=== PATIENT | female | born 1985 | race Caucasian/White ===

== ENCOUNTER 2017-06-18 07:14 | Emergency (ER) | payer MEDICARE, OTHER ==
[~2017-06-18] VITALS: Ht 152.4 cm; Wt 49.9 kg
[~2017-06-18 07:14] MED LIST: ABILIFY2 MG PO; AUGMENTIN 500-1 EACH PO; BACTRIM DS1 EA PO; CLARITIN10 M3 PO; KLONOPIN2 MG PO; PAXIL40 MG PO; PROVENTIL HFA6.7 GM INH; TUSSIONEX PENN480 ML PO; Z.0.LISINOPRIL10 MG PO; Z.0.NEXIUM40 MG PO; Z.0.TOPROL XL100 MG PO; [UNRECOGNIZED DRUG - CODE] PO; [UNRECOGNIZED DRUG - OTHER] PO; [UNRECOGNIZED DRUG - OTHER] PO
[2017-06-18] MEDS ORDERED: HYDROMORPHONE 1MG/1ML INJ IV STA (08:22)
[2017-06-18] MEDS ORDERED: ONDANSETRON HCL INJ 2 MG/ML VIAL IV STA (08:22)
[2017-06-18 08:28] LABS: BILIRUBIN,URINE NEGATIVE (NEGATIVE); KETONES,URINE NEGATIVE (NEGATIVE); LEUKOCYTE ESTERASE ,URINE NEGATIVE (NEGATIVE); NITRITE,URINE NEGATIVE (NEGATIVE); PROTEIN,URINE DIPSTICK NEGATIVE (NEGATIVE); URINE UROBILINOGEN 0.2 mg/dL (0.2 - 1)
[2017-06-18 08:32] LABS: CLARITY,URINE CLEAR (CLEAR); COLOR,URINE YELLOW (YELLOW)
[2017-06-18 08:44] LABS: BACTERIA,URINE RARE /HPF; EPITHELIAL CELLS,URINE RARE /LPF; RBC,URINE 0-5 /HPF (0-5); WBC,URINE (MAN) 0-5 /HPF (0-5)
[2017-06-18] MEDS ORDERED: PROMETHAZINE 25MG/ NS 50ML (IV) IV ONE (09:00)
[2017-06-18] MEDS ORDERED: HYDROMORPHONE 2MG/ML INJ IM ONE (09:00)
[2017-06-18] MEDS ORDERED: PROMETHAZINE HCL (IM) 25 MG/ML VIAL IM ONE (09:00)
[2017-06-18 09:24] LABS: BASOPHILS # (AUTO) 0.1 (0.0-0.1); BASOPHILS % 0.8 % (0.0-1.0); EOSINOPHILS # (AUTO) 0.1 (0.0-0.4); EOSINOPHILS % 1.4 % (0.0-6.0); HEMATOCRIT 35.4 % (34.2-44.1); HEMOGLOBIN 11.9 g/dL (12.0-16.0); LYMPHOCYTES # (AUTO) 2.6 (1.0-3.2); MEAN CORPUSCULAR HEMOGLOBIN 26.6 pg (28-32); MEAN CORPUSCULAR HGB CONC 33.6 g/dL (31-35); MEAN CORPUSCULAR VOLUME 79.2 fL (81-99); MONOCYTES # (AUTO) 0.7 (0.2-0.8); MONOCYTES % 10.3 % (4.4-11.3); NEUTROPHILS # (AUTO) 3.1 (2.1-6.9); NEUTROPHILS % 47.2 % (38.7-80.0); PLATELET COUNT 355 x10e3/uL (140-360); RED BLOOD COUNT 4.47 x10e6/uL (3.6-5.1); RED CELL DISTRIBUTION WIDTH 13.6 % (11.7-14.4)
[2017-06-18 09:47] LABS: ALANINE AMINOTRANSFERASE 6 IU/L (0-55); ALBUMIN 3.4 g/dL (3.5-5.0); ALBUMIN/GLOBULIN RATIO 0.9 (0.8-2.0); ALKALINE PHOSPHATASE 89 IU/L (40-150); ANION GAP 11.4 mmol/L (8-16); BLOOD UREA NITROGEN 20 mg/dL (7-26); BUN/CREATININE RATIO 14 (6-25); CALCIUM 9.5 mg/dL (8.4-10.2); CARBON DIOXIDE 20 mmol/L (22-29); CHLORIDE 107 mmol/L (98-107); CREATININE, SERUM 1.42 mg/dL (0.57-1.11); EST GLOMERULAR FILTRATION RATE 43 ML/MIN (60-); GLUCOSE 114 mg/dL (74-118); POTASSIUM 4.4 mmol/L (3.5-5.1); SODIUM 134 mmol/L (136-145)
[2017-06-18] MEDS ORDERED: DIPHENHYDRAMINE HCL INJ 50 MG/ML VIAL IM ONE (10:00)
--- NOTE | 2017-06-18 11:25 | Diagnostic Imaging Report ---
EXAM: Transabdominal Pelvic Ultrasound INDICATION: \S\ovarian cysts \[id number] \[id number] COMPARISON: None available. TECHNIQUE: Grayscale transverse and sagittal transabdominal images were obtained of the pelvis. CLINICAL HISTORY: 31 year old G0; last menstrual period: 05/07/2017. FINDINGS: Uterus Orientation: Normal Size: 6.9 x 2.8 x 3.5 cm, Normal Mass: None Cervix: Normal Endometrium: Thickness: 0.6 cm, Normal. Appearance: Homogeneous echotexture without focal thickening. Right ovary: Surgically absent. Left ovary: Size: 9.4 x 4.1 x 5.1 cm Mass/Cyst: 2 complex cysts versus a single cyst with septation measuring 9.9 cm (4.4 x 2.7 cm and 5.5 x 4 cm. Peripheral arterial and venous flow detected in left ovary. Adnexa: Transplanted kidney in the left pelvic region. There is a 2.7 x 2.5 x 3 cm midpole renal cyst. Complex cystic structure in the right adnexa measuring 2.4 x 3.4 x 2.9 cm, demonstrating peripheral vascularity. Cul-de-sac: No free fluid IMPRESSION: 1. Enlarged left ovary, containing complex cysts, demonstrating peripheral vascular flow, low likelihood of left ovarian torsion. 2. 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 3. Complex cystic structure in the right adnexa with peripheral vascularity. This could represent markedly hydronephrotic right pelvic transplanted kidney, considering history of bilateral renal transplant. Recommend CT abdomen/pelvis with contrast for further evaluation. Signed by: Dr. Fan Ellison MD on 06/18/2017 11:21 AM
== END 2017-06-18 11:50 | disposition home or self-care (01) ==
LOC: ER 07:14
DX: R10.30 Lower abdominal pain, unspecified (principal); N83.9 Noninflammatory disorder of ovary, fallopian tube and broad ligament, unspecified; I10 Essential (primary) hypertension; N28.9 Disorder of kidney and ureter, unspecified; F43.10 Post-traumatic stress disorder, unspecified; Z94.0 Kidney transplant status
CPT/HCPCS: 36415; 76856; 80053; 81001; 84702; 85025; 87086; 99284; J1170; J1200; J2550

== ENCOUNTER 2018-08-08 22:48 | Emergency (ER) | payer MEDICARE ==
[~2018-08-08] VITALS: Ht 152.4 cm; Wt 54.4 kg
--- OUTSIDE RECORDS SUMMARY | 2018-08-08 22:51 | XMS REPORT | Clinical Summary ---
Author Author CODIE MongoHQSt. 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 Active butalbital-acetaminophen- Take 1 tablet 30 tablet 1 caffeine (FIORICET, by mouth 6 ESGIC) 50-325-40 mg per every 6 (six) tablet hours as needed for Headaches. Active hydrOXYzine (ATARAX) 25 Take 25 mg by 0 MG tablet mouth as 6 needed for Itching . Active terazosin (HYTRIN) 1 MG Take 1 mg by 0 capsule mouth nightly 6 . Active cycloSPORINE modified Take 50 mg by 0 (NEORAL) 50 MG capsule mouth daily. Active PREDNISOLONE ORAL Take 5 mg by 0 mouth daily . Active gabapentin (NEURONTIN) Take 100 mg 0 100 MG capsule by mouth 3 (three) times daily. Active dextroamphetamine-ampheta Take 30 mg by 0 mine (ADDERALL) 10 mg Tab mouth daily . tablet Active lurasidone (LATUDA) 40 mg Take 40 mg by 0 Tab mouth daily. Active clonazePAM (KLONOPIN) 1 Resume as you 10 tablet 0 MG tablet were taking 8 prior to admission. Active PARoxetine (PAXIL) 20 MG Take 2 10 tablet 0 tabletIndications: tablets (40 8 Anxiety with Depression mg total) by mouth every morning. Active QUEtiapine (SEROQUEL) 100 Take 1.5 15 tablet 0 MG tablet tablets (150 8 mg) nightly. You have at home. Active traZODone (DESYREL) 100 Take 1 tablet 10 tablet 0 MG tablet (100 mg 8 total) by mouth nightly. Active valACYclovir (VALTREX) Take 1 tablet 5 tablet 0 500 MG tablet (500 mg 8 total) by mouth daily. 08/23/2018 Active magnesium oxide (MAG-OX) Take 1 tablet 90 tablet 0 400 mg tablet (400 mg 8 total) by mouth 3 (three) times daily. 01/24/2019 Active amLODIPine (NORVASC) 10 Take 1 tablet 30 tablet 11 MG tablet (10 mg total) 8 by mouth daily. Active sirolimus (RAPAMUNE) 0.5 Take 3 90 tablet 11 mg Tab tablet tablets (1.5 8 mg total) by mouth daily. Active pravastatin (PRAVACHOL) Take 40 mg by 0 40 MG tablet mouth daily. Active acetaminophen-codeine Take 1 tablet 0 (TYLENOL #3) 300-30 mg by mouth per tablet every 4 (four) hours as needed for Pain. Active traMADol (ULTRAM) 50 mg Take 50 mg by 0 tablet mouth every 6 (six) hours as needed for Pain. Active diphenhydrAMINE Take 50 mg by 0 (BENADRYL) 50 MG capsule mouth every 6 (six) hours as needed for Itching. 02/24/2019 Active hydrALAZINE (APRESOLINE) Take 1 tablet 60 tablet 0 25 MG tablet (25 mg total) 8 by mouth 2 (two) times daily. 02/24/2019 Active furosemide (LASIX) 20 MG Take 1 tablet 30 tablet 0 tablet (20 mg total) 8 by mouth daily. 08/23/2017 Discontinued PARoxetine (PAXIL) 20 MG Take 40 mg by 0 tabletIndications: mouth every Anxiety with Depression morning . 01/23/2018 Discontinued sirolimus (RAPAMUNE) 2 MG Take 2 mg by 0 tablet mouth daily. 01/23/2018 Discontinued lisinopril Take 5 mg by 0 (PRINIVIL,ZESTRIL) 20 MG mouth daily . tablet 08/23/2017 Discontinued QUEtiapine (SEROQUEL) 100 Take 1.5 0 MG tablet tablets (150 7 mg) nightly. You have at home. 08/23/2017 Discontinued clonazePAM (KLONOPIN) 1 Resume as you 0 MG tablet were taking 7 prior to admission. 01/23/2018 Discontinued polyethylene glycol Use daily per 0 (GLYCOLAX) 17 gram packet package 7 instructions for constipation. Is over the counter. 08/23/2017 Discontinued traZODone (DESYREL) 100 Take 100 mg 0 MG tablet by mouth nightly. 08/28/2017 cefdinir (OMNICEF) 300 MG Take 1 10 capsule 0 capsule capsule (300 8 mg total) by mouth every 12 (twelve) hours for 5 days. 09/02/2017 HYDROcodone-acetaminophen Take 2 30 tablet 0 (NORCO 7.5-325) 7.5-325 tablets by 8 mg per tablet mouth every 6 (six) hours as needed for up to 10 days. Max Daily Amount: 8 tablets 09/22/2017 lidocaine (LIDODERM) 5 % Place 2 20 patch 0 patch patches onto 8 the skin daily for 30 days Remove & Discard patch within 12 hours or as directed by . 02/02/2018 HYDROcodone-acetaminophen Take 1 tablet 30 tablet 0 (NORCO 10-325) 10-325 mg by mouth 8 per tablet every 4 (four) hours as needed for up to 10 days. Max Daily Amount: 6 tablets 03/26/2018 baclofen (LIORESAL) 10 MG Take 1 tablet 15 tablet 0 tablet (10 mg total) 8 by mouth 2 (two) times daily for 30 days. Active Problems Problem Noted Date Periorbital edema 01/15/2018 Immunosuppression 01/15/2018 Renal transplant recipient 01/15/2018 Acute kidney injury superimposed on CKD 07/22/2016 C. difficile diarrhea 05/30/2016 Septic shock 02/18/2016 EMMY (acute kidney injury) 02/18/2016 E. coli UTI 02/17/2016 Hypertension 10/11/2015 Pyelonephritis 08/07/2015 LLQ abdominal pain 08/07/2015 Hydrosalpinx 05/30/2015 Suusa-bi-byicoll kidney injury 05/30/2015 Dehydration 05/30/2015 Severe sepsis 05/17/2015 Tubo-ovarian abscess 04/26/2015 Lymphadenopathy 01/17/2015 Right tubo-ovarian abscess 11/05/2014 Acute abdominal pain 11/01/2014 Acute renal failure 08/31/2014 S/P kidney transplant 08/31/2014 Left flank pain 08/31/2014 Acute pyelonephritis 08/04/2014 Constipation 08/04/2014 S/p cadaver renal transplant 02/04/2014 Fever 08/29/2013 Gastroenteritis 06/28/2013 Abdominal pain 06/27/2013 Abdominal bloating 06/08/2013 Bloated abdomen 06/08/2013 Renal insufficiency 04/30/2013 Renal failure (ARF), acute on chronic 04/30/2013 Recurrent UTI 03/11/2013 Urinary tract disease 02/18/2013 UTI (urinary tract infection) 01/22/2013 Lower urinary tract infectious disease 01/22/2013 Overview: UPDATED BY ICD10 SNOMED/IMO UPDATES Transplanted kidney Overview: as child--LNRTx (adoptive mom donor)-CAN->dialsysi ICD9 DX 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 Status post kidney transplant Overview: DDKTx-baseline creatinine ~1--Left side ICD9 DX 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 Encounters Care Team Description Date Type Specialty Vamshi Mendez LCSW 07/10/2018 Social Work Transplant Musa White MD Pedal edema (Primary Dx); Uncontrolled hypertension; Renal insufficiency; Bilateral thoracic back pain, unspecified chronicity 02/24/2018 Emergency Emergency Medicine 02/24/2018 Orders Only General Internal Medicine Vamshi Mendez LCSW 01/17/2018 Social Work Transplant Vamshi Mendez LCSW 01/16/2018 Social Work Transplant Vamshi Mendez LCSW 01/16/2018 Telephone Transplant Elizabeth Ibrahim MD Yoon, MD Lance Rosales, Kimberlyn Hays MD Acute pyelonephritis (Primary Dx); Renal transplant recipient; LLQ abdominal pain; Immunosuppression (HCC); Complicated UTI (urinary tract infection); Bloated abdomen; Edema of both orbits; Shortness of breath 01/15/2018 Hospital General Internal Medicine - Encounter 01/23/2018 01/15/2018 Orders Only General Internal Medicine Eliceo Crawley MD (Mark) 08/19/2017 Hospital Transplant - Encounter 08/23/2017 after 08/07/2017 Immunizations Name Dates Previously Given Next Due Influenza High Dose 04/17/2016 Preservative Free IM Pneumococcal 04/17/2016 Polysaccharide (Pneumovax) Social History Date Tobacco Use Types Packs/Day Years Used Quit: 08/30/2013 Former Smoker Cigarettes 0.25 7 Smokeless Tobacco: Never Used Tobacco Cessation: Ready to Quit: Yes; Counseling Given: Yes Comments: pt ready to quit but wants drug addiction taken cared of first; in rehab for opiod addiction Alcohol Use Drinks/Week oz/Week Comments No Sex Assigned at Date Recorded Not on file Industry Job Start Date Occupation Not on file Not on file Not on file Travel End Travel History Travel Start No recent travel history available. Last Filed Vital Signs Time Taken Vital Sign Reading 02/24/2018 4:00 AM CDT Blood Pressure 160/94 02/24/2018 4:00 AM CDT Pulse 65 02/24/2018 12:35 AM CDT Temperature 36.8 C (98.2 F) 02/24/2018 12:35 AM CDT Respiratory Rate 20 02/24/2018 4:00 AM CDT Oxygen Saturation 99% - Inhaled Oxygen - Concentration 01/23/2018 5:00 AM CDT Weight 60.8 kg (134 lb) 01/15/2018 9:29 AM CDT Height 152.4 cm (5') 01/23/2018 5:00 AM CDT Body Mass Index 26.17 Plan of Treatment Health Maintenance Due Date Last Done Comments INFLUENZA VACCINE 03/04/2018 04/17/2016 Procedures Comments Procedure Name Priority Date/Time Associated Diagnosis ED ECG INTERPRETATION Routine 02/24/2018 5:19 AM CDT ECG 12-LEAD Routine 02/24/2018 4:05 AM CDT Procedure Note - Interface, External Ris In - 02/24/2018 10:14 AM CDT Ventricula r Rate 94 BPM Atrial Rate 94 BPM P-R Interval 144 ms QRS Duration 94 ms Q-T Interval 380 ms QTC Calculatio n(Bazett) 475 ms P Clarence 50 degrees R Clarence 77 degrees T Clarence 76 degrees Normal sinus rhythm Possible Left atrial enlargemen t Nonspecifi c ST abnormalit y Abnormal ECG When compared with ECG of 8 08:03, No significan t change was found ECG 12-LEAD STAT 02/24/2018 4:05 AM CDT XR CHEST 1 VIEW STAT 02/24/2018 PORTABLE/BEDSIDE 2:40 AM CDT CBC W/PLT COUNT & AUTO STAT 02/24/2018 DIFFERENTIAL 1:57 AM CDT SCREEN, URINE STAT 02/24/2018 1:57 AM CDT URINALYSIS W/ REFLEX STAT 02/24/2018 URINE CULTURE 1:57 AM CDT TROPONIN I STAT 02/24/2018 1:57 AM CDT B-TYPE NATRIURETIC FACTOR STAT 02/24/2018 (BNP) 1:57 AM CDT MAGNESIUM STAT 02/24/2018 1:57 AM CDT PHOSPHORUS STAT 02/24/2018 1:57 AM CDT BASIC METABOLIC PANEL (7) STAT 02/24/2018 1:57 AM CDT CBC W/PLT COUNT & AUTO STAT 02/24/2018 DIFFERENTIAL 1:57 AM CDT ED ECG INTERPRETATION Routine 01/23/2018 10:24 AM CDT CBC W/PLT COUNT & AUTO Routine 01/23/2018 DIFFERENTIAL 4:32 AM CDT CBC W/PLT COUNT & AUTO Routine 01/23/2018 DIFFERENTIAL 4:32 AM CDT BASIC METABOLIC PANEL (7) Routine 01/23/2018 4:32 AM CDT CBC W/PLT COUNT & AUTO Routine 01/22/2018 DIFFERENTIAL 6:22 AM CDT SIROLIMUS LEVEL AP Routine 01/22/2018 6:22 AM CDT CBC W/PLT COUNT & AUTO Routine 01/22/2018 DIFFERENTIAL 6:22 AM CDT BASIC METABOLIC PANEL (7) Routine 01/22/2018 6:22 AM CDT CBC W/PLT COUNT & AUTO Routine 01/21/2018 DIFFERENTIAL 9:56 AM CDT CBC W/PLT COUNT & AUTO Routine 01/21/2018 DIFFERENTIAL 9:56 AM CDT BASIC METABOLIC PANEL (7) Routine 01/21/2018 9:56 AM CDT CBC W/PLT COUNT & AUTO Routine 01/20/2018 DIFFERENTIAL 5:09 AM CDT CBC W/PLT COUNT & AUTO Routine 01/20/2018 DIFFERENTIAL 5:09 AM CDT BASIC METABOLIC PANEL (7) Routine 01/20/2018 5:09 AM CDT CBC W/PLT COUNT & AUTO Routine 01/19/2018 DIFFERENTIAL 6:35 AM CDT CYCLOSPORINE LEVEL Routine 01/19/2018 6:35 AM CDT CBC W/PLT COUNT & AUTO Routine 01/19/2018 DIFFERENTIAL 6:35 AM CDT BASIC METABOLIC PANEL (7) Routine 01/19/2018 6:35 AM CDT CBC W/PLT COUNT & AUTO Routine 01/18/2018 DIFFERENTIAL 10:11 AM CDT SIROLIMUS LEVEL Routine 01/18/2018 10:11 AM CDT CBC W/PLT COUNT & AUTO Routine 01/18/2018 DIFFERENTIAL 10:11 AM CDT BASIC METABOLIC PANEL (7) Routine 01/18/2018 10:11 AM CDT C. DIFFICILE GDH TOXIN Routine 01/17/2018 3:26 PM CDT US ABDOMEN LIMITED Routine 01/17/2018 9:00 AM CDT CBC W/PLT COUNT & AUTO Routine 01/17/2018 DIFFERENTIAL 3:55 AM CDT CYCLOSPORINE LEVEL Routine 01/17/2018 3:55 AM CDT SIROLIMUS LEVEL Routine 01/17/2018 3:55 AM CDT CBC W/PLT COUNT & AUTO Routine 01/17/2018 DIFFERENTIAL 3:55 AM CDT BASIC METABOLIC PANEL (7) Routine 01/17/2018 3:55 AM CDT BASIC METABOLIC PANEL (7) Routine 01/16/2018 6:28 AM CDT CBC W/PLT COUNT & AUTO Routine 01/16/2018 DIFFERENTIAL 5:15 AM CDT CBC W/PLT COUNT & AUTO Routine 01/16/2018 DIFFERENTIAL 5:15 AM CDT US TRANSPLANT KIDNEY STAT 01/15/2018 5:53 PM CDT BLOOD CULTURE STAT 01/15/2018 9:39 AM CDT BLOOD CULTURE STAT 01/15/2018 9:39 AM CDT XR CHEST 1 VIEW STAT 01/15/2018 PORTABLE/BEDSIDE 9:37 AM CDT SIROLIMUS LEVEL STAT 01/15/2018 9:29 AM CDT B-TYPE NATRIURETIC FACTOR STAT 01/15/2018 (BNP) 8:59 AM CDT CBC W/PLT COUNT & AUTO STAT 01/15/2018 DIFFERENTIAL 8:43 AM CDT CYCLOSPORINE LEVEL STAT 01/15/2018 8:43 AM CDT HEPATIC FUNCTION PANEL STAT 01/15/2018 8:43 AM CDT PHOSPHORUS STAT 01/15/2018 8:43 AM CDT MAGNESIUM STAT 01/15/2018 8:43 AM CDT BASIC METABOLIC PANEL (7) STAT 01/15/2018 8:43 AM CDT CBC W/PLT COUNT & AUTO STAT 01/15/2018 DIFFERENTIAL 8:43 AM CDT ECG 12-LEAD Routine 01/15/2018 8:03 AM CDT Procedure Note - Interface, External Ris In - 01/15/2018 8:49 PM CDT Ventricula r Rate 93 BPM Atrial Rate 93 BPM P-R Interval 130 ms QRS Duration 90 ms Q-T Interval 370 ms QTC Calculatio n(Bazett) 460 ms P Clarence 43 degrees R Clarence 63 degrees T Clarence 62 degrees Normal sinus rhythm Biatrial enlargemen t Abnormal ECG When compared with ECG of 7 13:22, No significan t change was found ECG 12-LEAD STAT 01/15/2018 8:03 AM CDT RAPID DRUG SCREEN, URINE STAT 01/15/2018 8:03 AM CDT SCREEN, URINE STAT 01/15/2018 8:03 AM CDT URINALYSIS W/ REFLEX STAT 01/15/2018 URINE CULTURE 8:03 AM CDT URINE CULTURE STAT 01/15/2018 8:03 AM CDT RHYTHM STRIP - SCAN 08/24/2017 1:40 PM CDT MAGNESIUM Routine 08/22/2017 5:37 AM CDT BASIC METABOLIC PANEL (7) Routine 08/22/2017 5:37 AM CDT SIROLIMUS LEVEL Routine 08/21/2017 6:35 AM CDT CYCLOSPORINE LEVEL Routine 08/21/2017 6:35 AM CDT MAGNESIUM Routine 08/21/2017 6:35 AM CDT BASIC METABOLIC PANEL (7) Routine 08/21/2017 6:35 AM CDT CBC W/PLT COUNT & AUTO NAY 08/20/2017 DIFFERENTIAL 6:16 AM CDT LIPASE NAY 08/20/2017 6:16 AM CDT HCG, QUANTITATIVE, NAY 08/20/2017 6:16 AM CDT COMPREHENSIVE METABOLIC NAY 08/20/2017 PANEL 6:16 AM CDT CBC W/PLT COUNT & AUTO NAY 08/20/2017 DIFFERENTIAL 6:16 AM CDT MAGNESIUM Routine 08/20/2017 6:16 AM CDT BASIC METABOLIC PANEL (7) Routine 08/20/2017 6:16 AM CDT URINALYSIS W/ MICROSCOPIC Routine 08/20/2017 12:10 AM CDT STD PANEL - CT/GC RNA Routine 08/20/2017 12:10 AM CDT URINE CULTURE Routine 08/20/2017 12:10 AM CDT US TRANSPLANT KIDNEY Routine 08/19/2017 11:15 PM CDT after 08/07/2017 Results * ED ECG Interpretation (02/24/2018 5:19 AM CDT) Only the most recent of 2 results within the time period is included. Narrative Performed At Musa White MD 02/24/20185:19 AM ECG/EKG Interpretation Date/Time: 02/24/2018 4:05 AM Performed by: MUSA WHITE Authorized by: MUSA WHITE The ECG was interpreted by ED physician. The ECG is interpreted as sinus rhythm. Rate is normal rate. Heart rate is 94 BPM. Conduction: conduction normal. ST segments normal. T waves normal. T-wave inversion in lead(s) V1 and V2. Clarence is normal. Other findings include: LAE. Clinical Impression: non-specific ECGECG reviewed and does not meet STEMI criteria. * ECG 12 lead (02/24/2018 4:05 AM CDT) Only the most recent of 2 results within the time period is included. Narrative Performed At Ventricular Rate 94 BPM GE MUSE Atrial Rate 94 BPM P-R Interval 144 ms QRS Duration 94 ms Q-T Interval 380 ms QTC Calculation(Bazett) 475 ms P Clarence 50 degrees R Clarence 77 degrees T Clarence 76 degrees Normal sinus rhythm Possible Left atrial enlargement Nonspecific ST abnormality Abnormal ECG When compared with ECG of 15-JAN-2018 08:03, No significant change was found Confirmed by MD KARIMI JOSEPH P ([id number]) on 02/25/2018 6:07:31 AM Procedure Note Interface, External Ris In - 02/25/2018 6:07 AM CDT Ventricular Rate 94 BPM Atrial Rate 94 BPM P-R Interval 144 ms QRS Duration 94 ms Q-T Interval 380 ms QTC Calculation(Bazett) 475 ms P Clarence 50 degrees R Clarence 77 degrees T Clarence 76 degrees Normal sinus rhythm Possible Left atrial enlargement Nonspecific ST abnormality Abnormal ECG When compared with ECG of 15-JAN-2018 08:03, No significant change was found Confirmed by MD KARIMI JOSEPH P ([id number]) on 02/25/2018 6:07:31 AM Performing Organization Address City/State/Zipcode Phone Number GE MUSE * XR chest 1 view portable / bedside (02/24/2018 2:40 AM CDT) Only the most recent of 2 results within the time period is included. Narrative Performed At FINAL REPORT [employer] INDICATION: chest pain COMPARISON: 01/15/18 TECHNIQUE: Single frontal view of the chest. FINDINGS: Lungs and pleura: Clear lungs. No effusion. Heart and mediastinum: Normal heart size. Unremarkable mediastinal contours. Osseous structures: No acute abnormality. Other: None. IMPRESSION: No acute intrathoracic abnormality. Signed: JR Marion Robert MD Report Verified Date/Time:02/24/2018 03:00:16 Reading Location: [facility] C013Y CT Body Reading Room Procedure Note Interface, External Ris In - 02/24/2018 3:02 AM CDT FINAL REPORT INDICATION: chest pain COMPARISON: 01/15/18 TECHNIQUE: Single frontal view of the chest. FINDINGS: Lungs and pleura: Clear lungs. No effusion. Heart and mediastinum: Normal heart size. Unremarkable mediastinal contours. Osseous structures: No acute abnormality. Other: None. IMPRESSION: No acute intrathoracic abnormality. Signed: JR Marion Robert MD Report Verified Date/Time: 02/24/2018 03:00:16 Reading Location: [facility] C013Y CT Body Reading Room Performing Organization Address City/State/Zipcode Phone Number GE RIS * Urinalysis w/Microscopic + Reflex to Culture (02/24/2018 1:57 AM CDT) Only the most recent of 2 results within the time period is included. Color, UA Yellow [facility] Clarity, UA Clear [facility] Specific [place], UA 1.011 1.001 - 1.035 [facility] pH, UA 7.0 5.0 - 8.0 [facility] Protein, UA 50 mg/dL (A) Negative [facility] Glucose, UA Negative Negative [facility] Ketones, UA Negative Negative [facility] Bilirubin, UA Negative Negative [facility] Blood, UA Negative Negative [facility] Nitrite, UA Negative Negative [facility] Leukocytes, UA Negative Negative [facility] Urobilinogen, UA 0.2 0.2 - 1.0 mg/dL [facility] RBC, UA 1 /HPF [facility] WBC, UA <1 /HPF [facility] Squam Epithel, UA 2 /HPF [facility] Hyaline Casts, UA 1 /LPF [facility] Amorphous Crystals Rare [facility] Specimen Source [facility] Specimen Urine - Urine, Clean Catch Performing Organization Address City/State/Zipcode Phone Number [facility] [address] [place] [address] [facility] * CBC with platelet count + automated diff (02/24/2018 1:57 AM CDT) Only the most recent of 11 results within the time period is included. WBC 5.4 3.5 - 10.5 K/L [facility] RBC 4.00 3.93 - 5.22 M/L [facility] Hemoglobin 10.7 (L) 11.2 - 15.7 GM/DL [facility] Hematocrit 31.7 (L) 34.1 - 44.9 % [facility] MCV 79.3 (L) 79.4 - 94.8 fL [facility] MCH 26.8 25.6 - 32.2 pg [facility] MCHC 33.8 32.2 - 35.5 GM/DL [facility] RDW 13.1 11.7 - 14.4 % [facility] Platelets 282 150 - 450 K/CU MM [facility] MPV 9.3 (L) 9.4 - 12.3 fL [facility] nRBC 0 0 - 0 /100 WBC [facility] % Neutros 45 % [facility] % Lymphs 41 % [facility] % Monos 11 % [facility] % Eos 2 % [facility] % Baso 1 % [facility] # Neutros 2.44 1.56 - 6.13 K/L [facility] # Lymphs 2.21 1.18 - 3.74 K/L [facility] # Monos 0.58 (H) 0.24 - 0.36 K/L [facility] # Eos 0.11 0.04 - 0.36 K/L [facility] # Baso 0.04 0.01 - 0.08 K/L [facility] Immature 0 0 - 1 % Granulocytes-Relative [facility] Specimen Blood Performing Organization Address City/[facility]/[place] [address] [facility] * Troponin I (not available at [facility] and [place]) (02/24/2018 1:57 AM CDT) Troponin I <0.01 0.00 - 0.03 ng/mL [facility] Specimen Blood Narrative Performed At Troponin I (TnI) levels must be interpreted in the context of the presenting symptoms and the clinical findings. Elevated TnI levels indicate myocardial [facility] damage, but are not specific for ischemic heart disease. Elevated TnI levels are seen in patients with other cardiac conditions (including myocarditis and congestive heart failure), and slight TnI elevations occur in patients with other conditions, including sepsis, renal failure, acidosis, acute neurological disease, and persistent tachyarrhythmia. Performing Organization Address [facility] [place] [address] [facility] * screen, urine (02/24/2018 1:57 AM CDT) Only the most recent of 2 results within the time period is included. Preg Test, Ur Negative [facility] Specimen Urine - Urine, Clean Catch Performing Organization Address [facility] [place] [address] [facility] * Phosphorus (02/24/2018 1:57 AM CDT) Only the most recent of 2 results within the time period is included. Phosphorus 3.2 2.3 - 4.7 mg/dL [facility] Specimen Blood Performing Organization Address City/[facility]/[place] [phone] * B-type natriuretic peptide (02/24/2018 1:57 AM CDT) Only the most recent of 2 results within the time period is included. BNP 105 (H) 0 - 100 pg/mL [facility] Specimen Blood Performing Organization Address City[facility] Phone Number [id number] [place] [address] [phone] * Magnesium (02/24/2018 1:57 AM CDT) Only the most recent of 5 results within the time period is included. Magnesium 2.2 1.6 - 2.6 mg/dL [facility] Specimen Blood Performing Organization Address [facility] Phone Number [address] [address] [phone] * Basic metabolic panel (Na, K+, Cl, CO2, Glu, Ca, BUN, Cr) (02/24/2018 1:57 AM CDT) Only the most recent of 13 results within the time period is included. Sodium 138 136 - 145 meq/L [facility] Potassium 4.0 3.5 - 5.1 meq/L [facility] Chloride 103 98 - 107 meq/L [facility] CO2 28 22 - 29 meq/L [facility] BUN 25 (H) 7 - 21 mg/dL [facility] Creatinine 1.78 (H) 0.57 - 1.25 mg/dL [facility] Glucose 134 (H) 70 - 105 mg/dL [facility] Calcium 10.0 8.4 - 10.2 mg/dL [facility] EGFR 33Comment: ESTIMATED GFR IS mL/min/1.73 sq m NOT ACCURATE CREATININE [facility] CLEARANCE IN PREDICTING GLOMERULAR FILTRATION RATE. ESTIMATED GFR IS NOT APPLICABLE FOR DIALYSIS PATIENTS. Specimen Blood Performing Organization Address City/State/Zipcode Phone Number [phone] [facility] * Sirolimus level (01/22/2018 6:22 AM CDT) Only the most recent of 5 results within the time period is included. Sirolimus 9.1 5.0 - 15.0 ng/mL [facility] Specimen Blood Narrative Performed At Trough in AM [facility] Performing Organization Address City/State/Zipcode Phone Number [address] [address] [facility] * Cyclosporine level (01/19/2018 6:35 AM CDT) Only the most recent of 4 results within the time period is included. Cyclosporine Lvl <30 <400 ng/mL [facility] Specimen Blood Performing Organization Address [facility] Phone Number [address] [phone] [facility] * Clostridium difficile [facility] Toxin (01/17/2018 3:26 PM CDT) C. Difficle Toxin Negative Negative [facility] C. Difficile [facility] Antigen Positive (A)Comment: C. Negative difficile present but toxin [facility] not detected. Indicates colonization with non-toxigenic strain or level of toxin below detectable levels. No need for enteric isolation. Treatment is rarely needed (only when strong clinical suspicion for Clostridium difficile infection) Specimen Stool - Stool Narrative Performed At Testing performed by [employer] Rapid Cassette Assay.For [facility], published sensitivity of the assay is 98.7% compared to cytotoxicity testing.For Toxin [facility], published sensitivity is 87.8% and specificity 99.4% compared to cytotoxicity testing. Verification of kit performance was done by the [facility] Microbiology Lab prior to clinical use. Performing Organization Address City/State/Zipcode Phone Number [facility] [address] [place] [address] [facility] * US abdomen limited (01/17/2018 9:00 AM CDT) Narrative Performed At FINAL REPORT [facility] TECHNIQUE: Focused grayscale ultrasound of the abdomen to assess for ascites. INDICATION: 32-year-old woman with abdominal distention. COMPARISON: None. IMPRESSION: No ascites in the visualized abdomen. Signed: Yordy España MD Report Verified Date/Time:01/17/2018 09:13:56 Reading Location: [address] Ultrasound Reading Room Procedure Note Interface, External Ris In - 01/17/2018 9:16 AM CDT FINAL REPORT TECHNIQUE: Focused grayscale ultrasound of the abdomen to assess for ascites. INDICATION: 32-year-old woman with abdominal distention. COMPARISON: None. IMPRESSION: No ascites in the visualized abdomen. Signed: Yordy España MD Report Verified Date/Time: 01/17/2018 09:13:56 Reading Location: [address] Ultrasound Reading Room Performing Organization Address City[facility] Phone Number [facility] * transplant kidney (01/15/2018 5:53 PM CDT) Only the most recent of 2 results within the time period is included. Narrative Performed At FINAL REPORT [facility] Transplant kidney ultrasound. Clinical History: EDEMA. Comparison Study: August 19, 2017. Findings: A transplant kidney is seen in the left lower quadrant zindectik68.8 x 5.7 x 5.3 cm. There is no evidence of nephrolithiasis or renal mass. Caliectasis is noted. The cortical thickness is 1.4 cm. A 2.8 x 2.3 x 2.5 cm septated cyst is seen in the upper pole. The peak arterial systolic velocity in the iliac limb is 1.05 m/sec, 1.11 m/sec at the anastomosis and 0.60 m/sec in the main renal artery. The peak venous systolic velocity is 26 cm/sec at the iliac limb, 44 cm/sec at the anastomosis and 11 cm/sec in the main renal vein. The acceleration times are normal. The acceleration indices are abnormal. Incidentally noted are ovarian cysts. They were not assessed in detail. The resistive index in the upper, inter and lower polar regions are 0.60, 0.57 and 0.60 respectively. No perinephric fluid collections are seen. The bladder contains 113 cc of urine. The patient had no urge to void. Impression: 1. Transplant kidney caliectasis, minimally more pronounced than on previous. 2. Septated cyst identified, similar to previous. 3. Abnormal acceleration indices, of doubtful significance given the normal anastomotic velocities. 4. Ovarian cysts, not assessed in detail. Pelvic ultrasound could be obtained as clinically indicated. The patient had a pelvic ultrasound on July 01, 2017. Signed: Kuldip Antunez MD Report Verified Date/Time:01/15/2018 19:29:35 Reading Location: [address] Consult Reading Room Procedure Note Interface, External Ris In - 01/15/2018 7:31 PM CDT FINAL REPORT Transplant kidney ultrasound. Clinical History: EDEMA. Comparison Study: August 19, 2017. Findings: A transplant kidney is seen in the left lower quadrant measuring 10.8 x 5.7 x 5.3 cm. There is no evidence of nephrolithiasis or renal mass. Caliectasis is noted. The cortical thickness is 1.4 cm. A 2.8 x 2.3 x 2.5 cm septated cyst is seen in the upper pole. The peak arterial systolic velocity in the iliac limb is 1.05 m/sec, 1.11 m/sec at the anastomosis and 0.60 m/sec in the main renal artery. The peak venous systolic velocity is 26 cm/sec at the iliac limb, 44 cm/sec at the anastomosis and 11 cm/sec in the main renal vein. The acceleration times are normal. The acceleration indices are abnormal. Incidentally noted are ovarian cysts. They were not assessed in detail. The resistive index in the upper, inter and lower polar regions are 0.60, 0.57 and 0.60 respectively. No perinephric fluid collections are seen. The bladder contains 113 cc of urine. The patient had no urge to void. Impression: 1. Transplant kidney caliectasis, minimally more pronounced than on previous. 2. Septated cyst identified, similar to previous. 3. Abnormal acceleration indices, of doubtful significance given the normal anastomotic velocities. 4. Ovarian cysts, not assessed in detail. Pelvic ultrasound could be obtained as clinically indicated. The patient had a pelvic ultrasound on July 01, 2017. Signed: Kuldip Antunez MD Report Verified Date/Time: 01/15/2018 19:29:35 Reading Location: [facility] [id number] Consult Reading Room Performing Organization Address City/[facility] Phone Number [facility] * Blood culture (01/15/2018 9:39 AM CDT) Only the most recent of 2 results within the time period is included. Result No growth in 5 days [facility] Specimen Blood - Arm, Left Performing Organization Address [facility]/[place] [address] [facility] * Hepatic function panel (01/15/2018 8:43 AM CDT) Protein, Total 7.2 6.0 - 8.3 gm/dL [facility] Albumin 3.8 3.5 - 5.0 g/dL [facility] Total Bilirubin 0.2 0.2 - 1.2 mg/dL [facility] Bilirubin, Direct <0.1 (L) 0.1 - 0.5 mg/dL [facility] Alkaline Phosphatase 114 40 - 150 U/L [facility] AST 19 5 - 34 U/L [facility] ALT 17 6 - 55 U/L [facility] Specimen Blood Narrative Performed At Specimen slightly lipemic [facility] Performing Organization Address [facility]/Zipcode Phone Number [facility] [address] [place] [address] [facility] * Rapid drug screen, urine (01/15/2018 8:03 AM CDT) Barbiturate Screen Negative Negative [facility] Benzodiazepine Screen Positive (A) Negative [facility] Cocaine (Metab.) Screen Negative Negative [facility] Methadone Screen Negative Negative [facility] Opiate Screen Positive (A) Negative [facility] Cannabinoid Screen Negative Negative [facility] Amph/Methamph Screen Positive (A) Negative [facility] Phencyclidine Screen Negative Negative [facility] Oxycodone Screen Negative Negative [facility] Specimen Urine Narrative Performed At [facility] Cocaine 300 ng/mL [facility] Rckfgdansxd66 ng/mL Kvhouvewbodmmq599 ng/mL Barbiturate 200 ng/mL Tijsrrptjegdp80 ng/mL Nrcrsc003 ng/mL Methadone 300 ng/mL Amphetamine/ 1000 ng/mL Methamphetamine Oxycodone 300 ng/mL This assay provides an unconfirmed qualitative test result for the clinical management of patients in emergency situations. Chain of custody not maintained. Some wxcb-tuy-pokafcx medications, as well as adulterants, may cause inaccurate results. Clinical correlation should be applied. A more comprehensive drug screen or confirmation of a detected drug may be performed upon request. Performing Organization Address City/State/Zipcode Phone Number [facility] [address] [place] [address] [facility] * Urine culture (01/15/2018 8:03 AM CDT) Only the most recent of 2 results within the time period is included. Result ESCHERICHIA COLI (A) [facility] Specimen Urine - Urine, Clean Catch Antibiotic Method Susceptibility Organism Amikacin <=2: Susceptible Escherichia coli Ampicillin + Sulbactam >=32: Resistant Escherichia coli Aztreonam <=1: Susceptible Escherichia coli Cefepime <=1: Susceptible Escherichia coli Cefoxitin <=4: Susceptible Escherichia coli Ceftazidime <=1: Susceptible Escherichia coli Ceftriaxone <=1: Susceptible Escherichia coli Ertapenem <=0.5: Susceptible Escherichia coli Gentamicin >=16: Resistant Escherichia coli Levofloxacin >=8: Resistant Escherichia coli Meropenem <=0.25: Susceptible Escherichia coli Nitrofurantoin <=16: Susceptible Escherichia coli Piperacillin + Tazobactam <=4: Susceptible Escherichia coli Tetracycline >=16: Resistant Escherichia coli Tobramycin 2: Susceptible Escherichia coli Trimethoprim + Sulfamethoxazole >=320: Resistant Escherichia coli Performing Organization Address [facility] Phone Number [address] [address] [facility] * RHYTHM STRIP - SCAN (08/24/2017 1:40 PM CDT) Narrative Performed At * hCG, quantitative, (08/20/2017 6:16 AM CDT) hCG Quant <1 0 - 10 mIU/mL [facility] Specimen Blood - Arm, Right Narrative Performed At Non- Females: <10 mIU/mL Females: [facility] Gestation AgeReference Range(mIU/mL) 0.2-1 Week5-50 1-2 [id number] 2-3 Weeks 100-5,000 3-4 Weeks 500-10,000 4-5 Weeks 1,000-50,000 5-6 Weeks10,000-100,000 6-8 Weeks15,000-200,000 2-3 Months 10,000-100,000 Performing Organization Address [facility] Phone Number [address] [address] [facility] * Lipase (08/20/2017 6:16 AM CDT) Lipase 52 8 - 78 U/L [facility] Specimen Blood - Arm, Right Performing Organization Address [facility] Phone Number [address] [address] [facility] * Comprehensive metabolic panel (08/20/2017 6:16 AM CDT) Protein, Total 6.2Comment: Specimen slightly 6.0 - 8.3 gm/dL [facility] Albumin 3.3 (L)Comment: Specimen 3.5 - 5.0 g/dL [facility] Alkaline Phosphatase 99 40 - 150 U/L [facility] Total Bilirubin <0.3Comment: Specimen slightly 0.2 - 1.2 mg/dL [facility] Sodium 134 (L) 136 - 145 meq/L [facility] Potassium 4.1Comment: Specimen slightly 3.5 - 5.1 meq/L [facility] Chloride 107 98 - 107 meq/L [facility] CO2 17 (L) 22 - 29 meq/L [facility] BUN 20 7 - 21 mg/dL [facility] Creatinine 1.51 (H)Comment: Specimen 0.57 - 1.25 mg/dL [facility] Glucose 90 70 - 105 mg/dL [facility] Calcium 8.7 8.4 - 10.2 mg/dL [facility] AST 37 (H)Comment: Specimen 5 - 34 U/L [facility] ALT 17Comment: Specimen slightly 6 - 55 U/L [facility] EGFR 40Comment: ESTIMATED GFR IS mL/min/1.73 sq m NOT ACCURATE CREATININE [facility] CLEARANCE IN PREDICTING GLOMERULAR FILTRATION RATE. ESTIMATED GFR IS NOT APPLICABLE FOR DIALYSIS PATIENTS. Specimen Blood - Arm, Right Performing Organization Address City/State/Zipcode Phone Number [facility] [address] [place] [address] [facility] * STD Panel - CT/GC RNA (08/20/2017 12:10 AM CDT) C. trachomatis RNA, TMA NOT DETECTED [facility] N. gonorrhoeae RNA, TMA NOT DETECTED [facility] Comment: INC[facility]POR[facility] REFERENCE RANGE: C. TRACHOMATIS RNA, TMA: NOT DETECTED N. GONORRHOEAE RNA, TMA: NOT DETECTED This test was performed using the APTIMA(R) COMBO2 Assay (GENFerroKin BiosciencesPROBE). Specimen Urine - Urine, Unspecified Source Narrative Performed At Performing Lab [facility] *[facility] [address] [place] [address] Blu Ramirez MD Performing Organization Address City/State/Zipcode Phone Number [facility], [address] [place], [place] [facility] [address] * Urinalysis w/ Microscopic (08/20/2017 12:10 AM CDT) Color, UA Light Yellow [facility] Clarity, UA Hazy [facility] Specific [place], UA 1.008 1.001 - 1.035 [facility] pH, UA 5.5 5.0 - 8.0 [facility] Protein, UA Negative Negative [facility] Glucose, UA Negative Negative [facility] Ketones, UA Negative Negative [facility] Bilirubin, UA Negative Negative [facility] Blood, UA Negative Negative [facility] Nitrite, UA Positive (A) Negative [facility] Leukocytes, UA Small (A) Negative [facility] Urobilinogen, UA 0.2 0.2 - 1.0 mg/dL [facility] RBC, UA 1 /HPF [facility] WBC, UA 6 /HPF [facility] Bacteria, UA Rare [facility] Squam Epithel, UA 4 /HPF [facility] Specimen Source Urine, Voided [facility] Specimen Urine - Urine, Voided Performing Organization Address City/State/Zipcode Phone Number [facility] [address] [place] [address] [facility] after 08/07/2017 Insurance Payer Benefit Subscriber ID Type Phone Address Plan / Group CARE IMPROVEMENT MEDICARE CARE xxxxxxxxx MGD CARE IMPROVEMEN T PLUS Advance Directives For more information, please contact: [facility] [address] [place] [address] Date Inactivated Comments Code Status Date Activated 01/23/2018 7:31 PM Full Code 01/15/2018 2:21 PM This code status was determined by: Patient 08/23/2017 7:24 PM Full Code 08/19/2017 7:15 PM This code status was determined by: Patient 06/03/2016 1:54 PM Full Code 05/28/2016 2:30 PM This code status was determined by: Patient 02/24/2016 3:31 PM Full Code 02/17/2016 11:59 PM This code status was determined by: Patient 02/17/2016 11:59 PM Full Code 02/17/2016 10:50 AM This code status was determined by: Patient
--- OUTSIDE RECORDS SUMMARY | 2018-08-08 22:52 | XMS REPORT ---
Author Author [facility] Address Unknown Phone Unavailable Care Team Providers Care Quality Control Auditor Name Role Phone LONNIE RAMOS Unavailable Unavailable ADOLFOSANTA Unavailable Unavailable NEGRO JANN -(TL) Unavailable Unavailable GUMARO, WANDA LAW Unavailable Unavailable GILBERT, D TUE Unavailable Unavailable GILBERT, BESSIE CYNTHIA Unavailable Unavailable SYSTEM, NOT IN PROVIDER Unavailable Unavailable TUNG, SHAUCHIBLADIMIR LILLY Unavailable Unavailable Payers Payer Name Policy Type Policy Number Effective Date Expiration Date Problems This patient has no known problems. Allergies, Adverse Reactions, Alerts Allergy Name Allergy Type Status Severity Reaction(s) Onset Date Inactive Date Treating Clinician Comments morphine DA Active AL 2018-07-25 00:00:00 codeine DA Active MO 2018-07-25 00:00:00 erythromycin base DA Active AL 2018-07-25 00:00:00 azithromycin DA Active SV 2018-07-25 00:00:00 ondansetron DA Active AL 2018-07-25 00:00:00 vancomycin DA Active U 2018-07-25 00:00:00 morphine DA Active AL 2017-08-19 00:00:00 codeine DA Active MO 2017-08-19 00:00:00 erythromycin base DA Active AL 2017-08-19 00:00:00 azithromycin DA Active SV 2017-08-19 00:00:00 ondansetron DA Active AL 2017-08-19 00:00:00 vancomycin DA Active U 2017-08-19 00:00:00 Medications This patient has no known medications. Results Test Description Test Time Test Comments Text Results Atomic Results Result Comments BASIC METABOLIC PANEL 2018-07-25 12:10:00 SODIUM (test code=NA) 139 mmol/L 136-145 POTASSIUM (test code=K) 3.3 mmol/L 3.5-5.1 CHLORIDE (test code=CL) 103.0 mmol/L 98-107 CARBON DIOXIDE (test code=CO2) 25.0 mmol/L 21-32 ANION GAP (test code=GAP) 14.3 10-20 GLUCOSE (test code=GLU) 145 mg/dL 74-106 BLOOD UREA NITROGEN (test code=BUN) 29 mg/dL 7-18 GLOMERULAR FILTRATION RATE (test code=GFR) 24 mL/min >=60 Estimated GFR by using Modified MDRD formula.Chronic kidney disease is defined as either kidney damageor GFR <60 mL/min/1.73 m2 for >3 months. CREATININE (test code=CREAT) 2.40 mg/dL 0.55-1.02 Note change in reference range due to change in reagent. BUN/CREATININE RATIO (test code=BUN/CREA) 11.9 10-20 CALCIUM (test code=CA) 9.0 mg/dL 8.5-10.1 HEPATIC FUNCTION [id number] 12:10:00* Test Item Value Reference Range Comments TOTAL PROTEIN (test code=PROT) 7.7 gram/dL 6.4-8.2 ALBUMIN (test code=ALB) 3.1 g/dL 3.4-5.0 GLOBULIN (test code=GLOB) 4.6 gram/dL 2.7-4.2 ALBUMIN/GLOBULIN RATIO (test code=A/G) 0.7 0.75-1.50 BILIRUBIN TOTAL (test code=BILT) 0.40 mg/dL 0.0-1.0 BILIRUBIN DIRECT (test code=BILD) 0.11 mg/dL 0.0-0.20 SGOT/AST (test code=AST) 22 IUnit/L 15-37 SGPT/ALT (test code=ALT) 24 IUnit/L 12-78 ALKALINE PHOSPHATASE TOTAL (test code=ALKP) 120 IUnit/L 45-117 Note change in reference range due to change in reagent. [id number] 12:10:00* Test Item Value Reference Range Comments LIPASE (test code=LIP) 102 U/L 73.0-393.0 HCG SERUM [id number] 12:10:00* Test Item Value Reference Range Comments HCG SERUM QUAL (test code=HCGQL) NEGATIVE NEGATIVE This HCGQL test is NOT applicable for MALE patients.Check with nurse about probable order error.If Tumor Marker Test needed, nurse should order test "HCGTU"(Test #550.21687) [id number] 12:10:00* Test Item Value Reference Range Comments TROPONIN-I (test code=TROPI) <0.015 ng/mL 0-0.045 BASIC METABOLIC [id number] 12:08:00* Test Item Value Reference Range Comments SODIUM (test code=NA) 139 mmol/L 136-145 POTASSIUM (test code=K) 3.3 mmol/L 3.5-5.1 CHLORIDE (test code=CL) 103.0 mmol/L 98-107 CARBON DIOXIDE (test code=CO2) mmol/L 21-32 ANION GAP (test code=GAP) 10-20 GLUCOSE (test code=GLU) mg/dL 74-106 BLOOD UREA NITROGEN (test code=BUN) mg/dL 7-18 GLOMERULAR FILTRATION RATE (test code=GFR) mL/min >=60 CREATININE (test code=CREAT) mg/dL 0.55-1.02 BUN/CREATININE RATIO (test code=BUN/CREA) 10-20 CALCIUM (test code=CA) mg/dL 8.5-10.1 HEPATIC FUNCTION [id number] 12:08:00* Test Item Value Reference Range Comments TOTAL PROTEIN (test code=PROT) gram/dL 6.4-8.2 ALBUMIN (test code=ALB) g/dL 3.4-5.0 GLOBULIN (test code=GLOB) gram/dL 2.7-4.2 ALBUMIN/GLOBULIN RATIO (test code=A/G) 0.75-1.50 BILIRUBIN TOTAL (test code=BILT) mg/dL 0.0-1.0 BILIRUBIN DIRECT (test code=BILD) mg/dL 0.0-0.20 SGOT/AST (test code=AST) IUnit/L 15-37 SGPT/ALT (test code=ALT) IUnit/L 12-78 ALKALINE PHOSPHATASE TOTAL (test code=ALKP) IUnit/L 45-117 [id number] 12:08:00* Test Item Value Reference Range Comments LIPASE (test code=LIP) U/L 73.0-393.0 HCG SERUM [id number] 12:08:00* Test Item Value Reference Range Comments HCG SERUM QUAL (test code=HCGQL) NEGATIVE NEGATIVE This HCGQL test is NOT applicable for MALE patients.Check with nurse about probable order error.If Tumor Marker Test needed, nurse should order test "HCGTU"(Test #550.92128) [id number] 12:08:00* Test Item Value Reference Range Comments TROPONIN-I (test code=TROPI) ng/mL 0-0.045 BASIC METABOLIC [id number] 12:00:00* Test Item Value Reference Range Comments SODIUM (test code=NA) 139 mmol/L 136-145 POTASSIUM (test code=K) 3.3 mmol/L 3.5-5.1 CHLORIDE (test code=CL) 103.0 mmol/L 98-107 CARBON DIOXIDE (test code=CO2) mmol/L 21-32 ANION GAP (test code=GAP) 10-20 GLUCOSE (test code=GLU) mg/dL 74-106 BLOOD UREA NITROGEN (test code=BUN) mg/dL 7-18 GLOMERULAR FILTRATION RATE (test code=GFR) mL/min >=60 CREATININE (test code=CREAT) mg/dL 0.55-1.02 BUN/CREATININE RATIO (test code=BUN/CREA) 10-20 CALCIUM (test code=CA) mg/dL 8.5-10.1 HEPATIC FUNCTION [id number] 12:00:00* Test Item Value Reference Range Comments TOTAL PROTEIN (test code=PROT) gram/dL 6.4-8.2 ALBUMIN (test code=ALB) g/dL 3.4-5.0 GLOBULIN (test code=GLOB) gram/dL 2.7-4.2 ALBUMIN/GLOBULIN RATIO (test code=A/G) 0.75-1.50 BILIRUBIN TOTAL (test code=BILT) mg/dL 0.0-1.0 BILIRUBIN DIRECT (test code=BILD) mg/dL 0.0-0.20 SGOT/AST (test code=AST) IUnit/L 15-37 SGPT/ALT (test code=ALT) IUnit/L 12-78 ALKALINE PHOSPHATASE TOTAL (test code=ALKP) IUnit/L 45-117 [id number] 12:00:00* Test Item Value Reference Range Comments LIPASE (test code=LIP) U/L 73.0-393.0 HCG SERUM [id number] 12:00:00* Test Item Value Reference Range Comments HCG SERUM QUAL (test code=HCGQL) NEGATIVE [id number] 12:00:00* Test Item Value Reference Range Comments TROPONIN-I (test code=TROPI) ng/mL 0-0.045 CBC W/O [id number] 11:56:00* Test Item Value Reference Range Comments WHITE BLOOD CELL (test code=WBC) 8.5 K/mm3 4.5-12.5 RED BLOOD CELL (test code=RBC) 4.33 mill/mm3 3.7-5.2 HEMOGLOBIN (test code=HGB) 11.4 gram/dL 11.5-15.5 HEMATOCRIT (test code=HCT) 35.1 % 36.0-46.0 MEAN CELL VOLUME (test code=MCV) 81.1 fL 80-98 MEAN CELL HGB (test code=MCH) 26.3 picogram 27.0-33.0 MEAN CELL HGB CONCETRATION (test code=MCHC) 32.5 gram/dL 33.0-36.0 RED CELL DISTRIBUTION WIDTH (test code=RDW) 13.4 % 11.6-16.2 PLATELET COUNT (test code=PLT) 252 K/mm3 150-450 MEAN PLATELET VOLUME (test code=MPV) 10.1 fL 6.7-11.0 URINALYSIS [id number] 11:30:00* Test Item Value Reference Range Comments UA COLOR (test code=COLU) STRAW YELLOW UA APPEARANCE (test code=APPU) SLIGHTLY CLOUDY CLEAR UA GLUCOSE DIPSTICK (test code=DGLUU) 50 (Trace) mg/dL NEGATIVE UA BILIRUBIN DIPSTICK (test code=BILU) NEGATIVE mg/dL NEGATIVE UA KETONE DIPSTICK (test code=KETU) Negative mg/dL NEGATIVE UA SPECIFIC GRAVITY (test code=SGU) 1.008 1.001-1.035 UA BLOOD DIPSTICK (test code=NIYA) 1+ (Small) NEGATIVE UA PH DIPSTICK (test code=JOHN) 6.0 5.0-8.0 UA PROTEIN DIPSTICK (test code=PROU) 30 (1+) mg/dL NEGATIVE UA UROBILINIOGEN DIPSTICK (test code=URO) NEGATIVE mg/dL NEGATIVE UA NITRITE DIPSTICK (test code=CHRISTOPHER) NEGATIVE NEGATIVE UA LEUKOCYTE ESTERASE W REFLEX (test code=LEUUR) 3+ NEGATIVE UA WBC (test code=WBCU) >50 #/HPF 0-5 UA RBC (test code=RBCU) 11-20 #/HPF 0-5 UA WBC CLUMPS (test code=WBCUCL) 3-6 /HPF NONE UA EPITHELIAL CELLS (test code=EPIU) FEW per HPF FEW UA MUCUS (test code=MUCU) FEW #/LPF FEW Urine Source? Clean CatchURINALYSIS [id number] 11:27:00* Test Item Value Reference Range Comments UA COLOR (test code=COLU) STRAW YELLOW UA APPEARANCE (test code=APPU) SLIGHTLY CLOUDY CLEAR UA GLUCOSE DIPSTICK (test code=DGLUU) 50 (Trace) mg/dL NEGATIVE UA BILIRUBIN DIPSTICK (test code=BILU) NEGATIVE mg/dL NEGATIVE UA KETONE DIPSTICK (test code=KETU) Negative mg/dL NEGATIVE UA SPECIFIC GRAVITY (test code=SGU) 1.008 1.001-1.035 UA BLOOD DIPSTICK (test code=NIYA) 1+ (Small) NEGATIVE UA PH DIPSTICK (test code=JOHN) 6.0 5.0-8.0 UA PROTEIN DIPSTICK (test code=PROU) 30 (1+) mg/dL NEGATIVE UA UROBILINIOGEN DIPSTICK (test code=URO) NEGATIVE mg/dL NEGATIVE UA NITRITE DIPSTICK (test code=CHRISTOPHER) NEGATIVE NEGATIVE UA LEUKOCYTE ESTERASE W REFLEX (test code=LEUUR) 3+ NEGATIVE UA WBC (test code=WBCU) per HPF 0-5 Urine Source? Clean CatchURINALYSIS W/ REFLEX URINE [id number] 03:02:00* Test Item Value Reference Range Comments COLOR (BEAKER) (test cebr=300) Yellow CLARITY (BEAKER) (test ynvy=116) Clear SPECIFIC GRAVITY UA (BEAKER) (test bchm=956) 1.011 1.001-1.035 PH UA (BEAKER) (test cpcm=087) 7.0 5.0-8.0 PROTEIN UA (BEAKER) (test gzuj=935) 50 mg/dL Negative GLUCOSE UA (BEAKER) (test jaoz=605) Negative Negative KETONES UA (BEAKER) (test fcct=753) Negative Negative BILIRUBIN UA (BEAKER) (test etoh=469) Negative Negative BLOOD UA (BEAKER) (test pzse=469) Negative Negative NITRITE UA (BEAKER) (test rqjk=202) Negative Negative LEUKOCYTE ESTERASE UA (BEAKER) (test jbpf=229) Negative Negative UROBILINOGEN UA (BEAKER) (test apir=981) 0.2 mg/dL 0.2-1.0 RBC UA (BEAKER) (test ffdf=434) 1 /HPF WBC UA (BEAKER) (test ylou=198) < /HPF SQUAMOUS EPITHELIAL (BEAKER) (test mduk=059) 2 /HPF HYALINE CASTS (BEAKER) (test wfyl=140) 1 /LPF AMORPHOUS CRYSTALS (BEAKER) (test hldq=3542) Rare SOURCE(BEAKER) (test tqmj=1880) RAD, CHEST, 1 VIEW, NON [id number] 03:00:00Reason for exam:->chest painIs the patient ?->NoShould this be performed at the bedside?->YesFINAL REPORT INDICATION: chest pain COMPARISON: 01/15/18 T ECHNIQUE: Single frontal view of the chest. FINDINGS: Lungs and pleura: Clear carrie ngs. No effusion.Heart and mediastinum: Normal heart size. Unremarkable mediasti nal contours.Osseous structures: No acute abnormality.Other: None. IMPRESSION: No acute intrathoracic abnormality. Signed: JR Marion Robert MDReport Ve rified Date/Time: 02/24/2018 03:00:16 Reading Location: [facility] C013Y CT Body Re ading Room 03: 00 AM SCREEN, [id number] 02:57:00* Test Item Value Reference Range Comments TEST URINE (BEAKER) (test fstb=618) Negative TROPONIN [id number] 02:35:00* Test Item Value Reference Range Comments TROPONIN I (BEAKER) (test ltax=087) < ng/mL 0.00-0.03 Troponin I (TnI) levels must be interpreted in the context of the presenting sym ptoms and the clinical findings. Elevated TnI levels indicate myocardial damage, but are not specific for ischemic heart disease. Elevated TnI levels are seen in patients with other cardiac conditions (including myocarditis and congestive h eart failure), and slight TnI elevations occur in patients with other conditions , including sepsis, renal failure, acidosis, acute neurological disease, and per sistent tachyarrhythmia.B-TYPE NATRIURETIC FACTOR (BNP)2018-02-24 02:33:00* Test Item Value Reference Range Comments B-TYPE NATRIURETIC PEPTIDE (BEAKER) (test hywy=461) 105 pg/mL 0-100 [id number] 02:28:00* Test Item Value Reference Range Comments PHOSPHORUS (BEAKER) (test auto=404) 3.2 mg/dL 2.3-4.7 [id number] 02:28:00* Test Item Value Reference Range Comments MAGNESIUM (BEAKER) (test qqkb=176) 2.2 mg/dL 1.6-2.6 BASIC METABOLIC [id number] 02:28:00* Test Item Value Reference Range Comments SODIUM (BEAKER) (test qipz=668) 138 meq/L 136-145 POTASSIUM (BEAKER) (test xtmj=027) 4.0 meq/L 3.5-5.1 CHLORIDE (BEAKER) (test cffm=584) 103 meq/L 98-107 CO2 (BEAKER) (test rryy=755) 28 meq/L 22-29 BLOOD UREA NITROGEN (BEAKER) (test obgp=096) 25 mg/dL 7-21 CREATININE (BEAKER) (test ptxc=554) 1.78 mg/dL 0.57-1.25 GLUCOSE RANDOM (BEAKER) (test jtqa=497) 134 mg/dL 70-105 CALCIUM (BEAKER) (test vyej=713) 10.0 mg/dL 8.4-10.2 EGFR (BEAKER) (test rxsq=9677) 33 mL/min/1.73 sq m ESTIMATED GFR IS NOT ACCURATE CREATININE CLEARANCE IN PREDICTING GLOMERULAR FILTRATION RATE. ESTIMATED GFR IS NOT APPLICABLE FOR DIALYSIS PATIENTS. CBC W/PLT COUNT & AUTO [id number] 02:12:00* Test Item Value Reference Range Comments WHITE BLOOD CELL COUNT (BEAKER) (test owju=533) 5.4 K/ L 3.5-10.5 RED BLOOD CELL COUNT (BEAKER) (test fcyg=750) 4.00 M/ L 3.93-5.22 HEMOGLOBIN (BEAKER) (test tmnh=005) 10.7 GM/DL 11.2-15.7 HEMATOCRIT (BEAKER) (test rdsx=961) 31.7 % 34.1-44.9 MEAN CORPUSCULAR VOLUME (BEAKER) (test fvfq=570) 79.3 fL 79.4-94.8 MEAN CORPUSCULAR HEMOGLOBIN (BEAKER) (test bdyc=633) 26.8 pg 25.6-32.2 MEAN CORPUSCULAR HEMOGLOBIN CONC (BEAKER) (test bmhe=958) 33.8 GM/DL 32.2-35.5 RED CELL DISTRIBUTION WIDTH (BEAKER) (test hsff=414) 13.1 % 11.7-14.4 PLATELET COUNT (BEAKER) (test cmcm=078) 282 K/CU MM 150-450 MEAN PLATELET VOLUME (BEAKER) (test uree=091) 9.3 fL 9.4-12.3 NUCLEATED RED BLOOD CELLS (BEAKER) (test ffkh=742) 0 /100 WBC 0-0 NEUTROPHILS RELATIVE PERCENT (BEAKER) (test kctu=095) 45 % LYMPHOCYTES RELATIVE PERCENT (BEAKER) (test ztuw=388) 41 % MONOCYTES RELATIVE PERCENT (BEAKER) (test csux=233) 11 % EOSINOPHILS RELATIVE PERCENT (BEAKER) (test cmag=570) 2 % BASOPHILS RELATIVE PERCENT (BEAKER) (test ivhh=860) 1 % NEUTROPHILS ABSOLUTE COUNT (BEAKER) (test krxg=235) 2.44 K/ L 1.56-6.13 LYMPHOCYTES ABSOLUTE COUNT (BEAKER) (test etmq=635) 2.21 K/ L 1.18-3.74 MONOCYTES ABSOLUTE COUNT (BEAKER) (test yeqj=770) 0.58 K/ L 0.24-0.36 EOSINOPHILS ABSOLUTE COUNT (BEAKER) (test dbzd=947) 0.11 K/ L 0.04-0.36 BASOPHILS ABSOLUTE COUNT (BEAKER) (test spgb=280) 0.04 K/ L 0.01-0.08 IMMATURE GRANULOCYTES-RELATIVE PERCENT (BEAKER) (test zxjy=0432) 0 % 0-1 CBC W/PLT COUNT & AUTO [id number] 07:05:00* Test Item Value Reference Range Comments WHITE BLOOD CELL COUNT (BEAKER) (test dhfe=606) 6.6 K/ L 3.5-10.5 RED BLOOD CELL COUNT (BEAKER) (test oume=188) 3.81 M/ L 3.93-5.22 HEMOGLOBIN (BEAKER) (test doio=505) 10.5 GM/DL 11.2-15.7 HEMATOCRIT (BEAKER) (test ygtz=143) 32.7 % 34.1-44.9 MEAN CORPUSCULAR VOLUME (BEAKER) (test astd=590) 85.8 fL 79.4-94.8 MEAN CORPUSCULAR HEMOGLOBIN (BEAKER) (test kdvm=613) 27.6 pg 25.6-32.2 MEAN CORPUSCULAR HEMOGLOBIN CONC (BEAKER) (test oxop=861) 32.1 GM/DL 32.2-35.5 RED CELL DISTRIBUTION WIDTH (BEAKER) (test dqcw=364) 15.5 % 11.7-14.4 PLATELET COUNT (BEAKER) (test xrpk=297) 271 K/CU MM 150-450 MEAN PLATELET VOLUME (BEAKER) (test vuas=077) 10.5 fL 9.4-12.3 NUCLEATED RED BLOOD CELLS (BEAKER) (test lmtc=695) 0 /100 WBC 0-0 NEUTROPHILS RELATIVE PERCENT (BEAKER) (test wkrn=612) 38 % LYMPHOCYTES RELATIVE PERCENT (BEAKER) (test ivvq=847) 43 % MONOCYTES RELATIVE PERCENT (BEAKER) (test rtef=778) 12 % EOSINOPHILS RELATIVE PERCENT (BEAKER) (test vzwq=931) 6 % BASOPHILS RELATIVE PERCENT (BEAKER) (test fecw=167) 1 % NEUTROPHILS ABSOLUTE COUNT (BEAKER) (test xido=347) 2.52 K/ L 1.56-6.13 LYMPHOCYTES ABSOLUTE COUNT (BEAKER) (test gtag=304) 2.83 K/ L 1.18-3.74 MONOCYTES ABSOLUTE COUNT (BEAKER) (test exre=614) 0.80 K/ L 0.24-0.36 EOSINOPHILS ABSOLUTE COUNT (BEAKER) (test rejo=384) 0.39 K/ L 0.04-0.36 BASOPHILS ABSOLUTE COUNT (BEAKER) (test ejev=196) 0.04 K/ L 0.01-0.08 IMMATURE GRANULOCYTES-RELATIVE PERCENT (BEAKER) (test xwjp=3496) 0 % 0-1 BASIC METABOLIC [id number] 06:59:00* Test Item Value Reference Range Comments SODIUM (BEAKER) (test fkzn=142) 136 meq/L 136-145 POTASSIUM (BEAKER) (test arhz=171) 4.2 meq/L 3.5-5.1 CHLORIDE (BEAKER) (test qekl=160) 105 meq/L 98-107 CO2 (BEAKER) (test noqb=787) 20 meq/L 22-29 BLOOD UREA NITROGEN (BEAKER) (test fnvl=144) 24 mg/dL 7-21 CREATININE (BEAKER) (test bwre=277) 1.54 mg/dL 0.57-1.25 GLUCOSE RANDOM (BEAKER) (test bxrm=530) 111 mg/dL 70-105 CALCIUM (BEAKER) (test last=274) 9.7 mg/dL 8.4-10.2 EGFR (BEAKER) (test zhpa=0423) 39 mL/min/1.73 sq m ESTIMATED GFR IS NOT ACCURATE CREATININE CLEARANCE IN PREDICTING GLOMERULAR FILTRATION RATE. ESTIMATED GFR IS NOT APPLICABLE FOR DIALYSIS PATIENTS. SIROLIMUS [id number] 10:45:00* Test Item Value Reference Range Comments SIROLIMUS LEVEL BLOOD (BEAKER) (test vzve=854) 9.1 ng/mL 5.0-15.0 Trough in AMBASIC METABOLIC [id number] 06:54:00* Test Item Value Reference Range Comments SODIUM (BEAKER) (test kzuc=474) 134 meq/L 136-145 POTASSIUM (BEAKER) (test huft=074) 4.4 meq/L 3.5-5.1 CHLORIDE (BEAKER) (test pafo=092) 103 meq/L 98-107 CO2 (BEAKER) (test oxkp=026) 23 meq/L 22-29 BLOOD UREA NITROGEN (BEAKER) (test pgxg=528) 22 mg/dL 7-21 CREATININE (BEAKER) (test duwx=670) 1.52 mg/dL 0.57-1.25 GLUCOSE RANDOM (BEAKER) (test kncq=666) 117 mg/dL 70-105 CALCIUM (BEAKER) (test oatq=039) 9.8 mg/dL 8.4-10.2 EGFR (BEAKER) (test zfxj=7992) 40 mL/min/1.73 sq m ESTIMATED GFR IS NOT ACCURATE CREATININE CLEARANCE IN PREDICTING GLOMERULAR FILTRATION RATE. ESTIMATED GFR IS NOT APPLICABLE FOR DIALYSIS PATIENTS. CBC W/PLT COUNT & AUTO [id number] 06:48:00* Test Item Value Reference Range Comments WHITE BLOOD CELL COUNT (BEAKER) (test shca=106) 5.1 K/ L 3.5-10.5 RED BLOOD CELL COUNT (BEAKER) (test avet=061) 3.91 M/ L 3.93-5.22 HEMOGLOBIN (BEAKER) (test bwvo=816) 10.5 GM/DL 11.2-15.7 HEMATOCRIT (BEAKER) (test khjc=631) 32.7 % 34.1-44.9 MEAN CORPUSCULAR VOLUME (BEAKER) (test tpnx=700) 83.6 fL 79.4-94.8 MEAN CORPUSCULAR HEMOGLOBIN (BEAKER) (test vlcx=711) 26.9 pg 25.6-32.2 MEAN CORPUSCULAR HEMOGLOBIN CONC (BEAKER) (test jcyj=709) 32.1 GM/DL 32.2-35.5 RED CELL DISTRIBUTION WIDTH (BEAKER) (test uhmh=627) 15.4 % 11.7-14.4 PLATELET COUNT (BEAKER) (test hbbx=820) 268 K/CU MM 150-450 MEAN PLATELET VOLUME (BEAKER) (test mlns=404) 9.9 fL 9.4-12.3 NUCLEATED RED BLOOD CELLS (BEAKER) (test ycze=887) 0 /100 WBC 0-0 NEUTROPHILS RELATIVE PERCENT (BEAKER) (test iaby=108) 26 % LYMPHOCYTES RELATIVE PERCENT (BEAKER) (test skfz=684) 47 % MONOCYTES RELATIVE PERCENT (BEAKER) (test glxy=978) 13 % EOSINOPHILS RELATIVE PERCENT (BEAKER) (test yznw=574) 13 % BASOPHILS RELATIVE PERCENT (BEAKER) (test yyex=683) 1 % NEUTROPHILS ABSOLUTE COUNT (BEAKER) (test uqtf=908) 1.34 K/ L 1.56-6.13 LYMPHOCYTES ABSOLUTE COUNT (BEAKER) (test cgkl=763) 2.41 K/ L 1.18-3.74 MONOCYTES ABSOLUTE COUNT (BEAKER) (test nbhu=726) 0.67 K/ L 0.24-0.36 EOSINOPHILS ABSOLUTE COUNT (BEAKER) (test oulj=411) 0.64 K/ L 0.04-0.36 BASOPHILS ABSOLUTE COUNT (BEAKER) (test ujst=244) 0.05 K/ L 0.01-0.08 IMMATURE GRANULOCYTES-RELATIVE PERCENT (BEAKER) (test onck=8407) 0 % 0-1 BASIC METABOLIC [id number] 10:20:00* Test Item Value Reference Range Comments SODIUM (BEAKER) (test cefa=682) 134 meq/L 136-145 POTASSIUM (BEAKER) (test injm=567) 4.2 meq/L 3.5-5.1 CHLORIDE (BEAKER) (test dxpm=938) 102 meq/L 98-107 CO2 (BEAKER) (test oekc=489) 22 meq/L 22-29 BLOOD UREA NITROGEN (BEAKER) (test bxdk=021) 20 mg/dL 7-21 CREATININE (BEAKER) (test gnkf=089) 1.73 mg/dL 0.57-1.25 GLUCOSE RANDOM (BEAKER) (test isyx=670) 103 mg/dL 70-105 CALCIUM (BEAKER) (test eqqo=291) 9.6 mg/dL 8.4-10.2 EGFR (BEAKER) (test pbca=6903) 34 mL/min/1.73 sq m ESTIMATED GFR IS NOT ACCURATE CREATININE CLEARANCE IN PREDICTING GLOMERULAR FILTRATION RATE. ESTIMATED GFR IS NOT APPLICABLE FOR DIALYSIS PATIENTS. CBC W/PLT COUNT & AUTO [id number] 10:09:00* Test Item Value Reference Range Comments WHITE BLOOD CELL COUNT (BEAKER) (test zzre=298) 8.6 K/ L 3.5-10.5 RED BLOOD CELL COUNT (BEAKER) (test kycr=595) 3.77 M/ L 3.93-5.22 HEMOGLOBIN (BEAKER) (test wtdr=625) 10.2 GM/DL 11.2-15.7 HEMATOCRIT (BEAKER) (test zbgi=403) 30.7 % 34.1-44.9 MEAN CORPUSCULAR VOLUME (BEAKER) (test sylk=796) 81.4 fL 79.4-94.8 MEAN CORPUSCULAR HEMOGLOBIN (BEAKER) (test gmbu=355) 27.1 pg 25.6-32.2 MEAN CORPUSCULAR HEMOGLOBIN CONC (BEAKER) (test jwhs=010) 33.2 GM/DL 32.2-35.5 RED CELL DISTRIBUTION WIDTH (BEAKER) (test uqvh=356) 15.4 % 11.7-14.4 PLATELET COUNT (BEAKER) (test cxlr=817) 277 K/CU MM 150-450 MEAN PLATELET VOLUME (BEAKER) (test katg=489) 9.7 fL 9.4-12.3 NUCLEATED RED BLOOD CELLS (BEAKER) (test bvqc=716) 0 /100 WBC 0-0 NEUTROPHILS RELATIVE PERCENT (BEAKER) (test chxs=167) 60 % LYMPHOCYTES RELATIVE PERCENT (BEAKER) (test sarm=556) 22 % MONOCYTES RELATIVE PERCENT (BEAKER) (test mdhn=665) 9 % EOSINOPHILS RELATIVE PERCENT (BEAKER) (test cnox=935) 9 % BASOPHILS RELATIVE PERCENT (BEAKER) (test kjuq=785) 1 % NEUTROPHILS ABSOLUTE COUNT (BEAKER) (test ognl=974) 5.13 K/ L 1.56-6.13 LYMPHOCYTES ABSOLUTE COUNT (BEAKER) (test kerh=988) 1.87 K/ L 1.18-3.74 MONOCYTES ABSOLUTE COUNT (BEAKER) (test hziy=364) 0.77 K/ L 0.24-0.36 EOSINOPHILS ABSOLUTE COUNT (BEAKER) (test nupa=886) 0.75 K/ L 0.04-0.36 BASOPHILS ABSOLUTE COUNT (BEAKER) (test ilcw=658) 0.08 K/ L 0.01-0.08 IMMATURE GRANULOCYTES-RELATIVE PERCENT (BEAKER) (test hfqy=1186) 0 % 0-1 BLOOD [id number] 12:00:00* Test Item Value Reference Range Comments CULTURE (BEAKER) (test btmg=2912) No growth in 5 days BLOOD [id number] 12:00:00* Test Item Value Reference Range Comments CULTURE (BEAKER) (test mugs=1626) No growth in 5 days CBC W/PLT COUNT & AUTO [id number] 06:09:00* Test Item Value Reference Range Comments WHITE BLOOD CELL COUNT (BEAKER) (test okeg=040) 6.3 K/ L 3.5-10.5 RED BLOOD CELL COUNT (BEAKER) (test helk=302) 4.00 M/ L 3.93-5.22 HEMOGLOBIN (BEAKER) (test dkpq=063) 10.8 GM/DL 11.2-15.7 HEMATOCRIT (BEAKER) (test cxel=221) 33.7 % 34.1-44.9 MEAN CORPUSCULAR VOLUME (BEAKER) (test vqbf=137) 84.3 fL 79.4-94.8 MEAN CORPUSCULAR HEMOGLOBIN (BEAKER) (test zhad=214) 27.0 pg 25.6-32.2 MEAN CORPUSCULAR HEMOGLOBIN CONC (BEAKER) (test lyad=347) 32.0 GM/DL 32.2-35.5 RED CELL DISTRIBUTION WIDTH (BEAKER) (test axug=936) 16.0 % 11.7-14.4 PLATELET COUNT (BEAKER) (test rvla=577) 293 K/CU MM 150-450 MEAN PLATELET VOLUME (BEAKER) (test mrgp=430) 10.1 fL 9.4-12.3 NUCLEATED RED BLOOD CELLS (BEAKER) (test wmln=374) 0 /100 WBC 0-0 NEUTROPHILS RELATIVE PERCENT (BEAKER) (test uowk=321) 36 % LYMPHOCYTES RELATIVE PERCENT (BEAKER) (test rhxj=133) 40 % MONOCYTES RELATIVE PERCENT (BEAKER) (test ieii=596) 12 % EOSINOPHILS RELATIVE PERCENT (BEAKER) (test ezhl=807) 11 % BASOPHILS RELATIVE PERCENT (BEAKER) (test gyjf=185) 1 % NEUTROPHILS ABSOLUTE COUNT (BEAKER) (test uyqm=868) 2.25 K/ L 1.56-6.13 LYMPHOCYTES ABSOLUTE COUNT (BEAKER) (test ydzg=966) 2.53 K/ L 1.18-3.74 MONOCYTES ABSOLUTE COUNT (BEAKER) (test tapk=216) 0.72 K/ L 0.24-0.36 EOSINOPHILS ABSOLUTE COUNT (BEAKER) (test nenm=462) 0.71 K/ L 0.04-0.36 BASOPHILS ABSOLUTE COUNT (BEAKER) (test rlbb=813) 0.05 K/ L 0.01-0.08 IMMATURE GRANULOCYTES-RELATIVE PERCENT (BEAKER) (test rdtn=5570) 0 % 0-1 BASIC METABOLIC [id number] 05:46:00* Test Item Value Reference Range Comments SODIUM (BEAKER) (test ledq=344) 137 meq/L 136-145 POTASSIUM (BEAKER) (test drjg=109) 4.0 meq/L 3.5-5.1 CHLORIDE (BEAKER) (test icfx=140) 104 meq/L 98-107 CO2 (BEAKER) (test llnn=636) 23 meq/L 22-29 BLOOD UREA NITROGEN (BEAKER) (test fpgz=186) 23 mg/dL 7-21 CREATININE (BEAKER) (test rgfe=061) 1.90 mg/dL 0.57-1.25 GLUCOSE RANDOM (BEAKER) (test jhqr=658) 121 mg/dL 70-105 CALCIUM (BEAKER) (test synz=478) 9.7 mg/dL 8.4-10.2 EGFR (BEAKER) (test lwgn=0181) 31 mL/min/1.73 sq m ESTIMATED GFR IS NOT ACCURATE CREATININE CLEARANCE IN PREDICTING GLOMERULAR FILTRATION RATE. ESTIMATED GFR IS NOT APPLICABLE FOR DIALYSIS PATIENTS. CYCLOSPORINE [id number] 10:22:00* Test Item Value Reference Range Comments CYCLOSPORINE BLOOD (BEAKER) (test kcch=395) < ng/mL <400 BASIC METABOLIC [id number] 07:18:00* Test Item Value Reference Range Comments SODIUM (BEAKER) (test euvz=127) 135 meq/L 136-145 POTASSIUM (BEAKER) (test igsp=944) 3.8 meq/L 3.5-5.1 CHLORIDE (BEAKER) (test qazo=375) 102 meq/L 98-107 CO2 (BEAKER) (test neoc=570) 23 meq/L 22-29 BLOOD UREA NITROGEN (BEAKER) (test ftbn=112) 15 mg/dL 7-21 CREATININE (BEAKER) (test kpur=993) 1.59 mg/dL 0.57-1.25 GLUCOSE RANDOM (BEAKER) (test icer=172) 116 mg/dL 70-105 CALCIUM (BEAKER) (test feuo=787) 9.9 mg/dL 8.4-10.2 EGFR (BEAKER) (test hmyb=9677) 38 mL/min/1.73 sq m ESTIMATED GFR IS NOT ACCURATE CREATININE CLEARANCE IN PREDICTING GLOMERULAR FILTRATION RATE. ESTIMATED GFR IS NOT APPLICABLE FOR DIALYSIS PATIENTS. CBC W/PLT COUNT & AUTO [id number] 06:56:00* Test Item Value Reference Range Comments WHITE BLOOD CELL COUNT (BEAKER) (test woba=535) 7.4 K/ L 3.5-10.5 RED BLOOD CELL COUNT (BEAKER) (test rbbm=210) 3.96 M/ L 3.93-5.22 HEMOGLOBIN (BEAKER) (test csat=072) 10.6 GM/DL 11.2-15.7 HEMATOCRIT (BEAKER) (test fxep=924) 32.5 % 34.1-44.9 MEAN CORPUSCULAR VOLUME (BEAKER) (test dxbl=330) 82.1 fL 79.4-94.8 MEAN CORPUSCULAR HEMOGLOBIN (BEAKER) (test uynw=028) 26.8 pg 25.6-32.2 MEAN CORPUSCULAR HEMOGLOBIN CONC (BEAKER) (test elca=498) 32.6 GM/DL 32.2-35.5 RED CELL DISTRIBUTION WIDTH (BEAKER) (test gqvm=361) 15.9 % 11.7-14.4 PLATELET COUNT (BEAKER) (test wnoe=510) 278 K/CU MM 150-450 MEAN PLATELET VOLUME (BEAKER) (test hnvi=038) 9.8 fL 9.4-12.3 NUCLEATED RED BLOOD CELLS (BEAKER) (test lesg=460) 0 /100 WBC 0-0 NEUTROPHILS RELATIVE PERCENT (BEAKER) (test ucpo=517) 61 % LYMPHOCYTES RELATIVE PERCENT (BEAKER) (test lhse=823) 23 % MONOCYTES RELATIVE PERCENT (BEAKER) (test rppk=033) 10 % EOSINOPHILS RELATIVE PERCENT (BEAKER) (test oboh=607) 5 % BASOPHILS RELATIVE PERCENT (BEAKER) (test uvxn=401) 1 % NEUTROPHILS ABSOLUTE COUNT (BEAKER) (test czuo=392) 4.50 K/ L 1.56-6.13 LYMPHOCYTES ABSOLUTE COUNT (BEAKER) (test itzu=049) 1.72 K/ L 1.18-3.74 MONOCYTES ABSOLUTE COUNT (BEAKER) (test yopk=654) 0.70 K/ L 0.24-0.36 EOSINOPHILS ABSOLUTE COUNT (BEAKER) (test mdue=037) 0.40 K/ L 0.04-0.36 BASOPHILS ABSOLUTE COUNT (BEAKER) (test esol=927) 0.04 K/ L 0.01-0.08 IMMATURE GRANULOCYTES-RELATIVE PERCENT (BEAKER) (test lpbq=2906) 0 % 0-1 SIROLIMUS [id number] 13:29:00* Test Item Value Reference Range Comments SIROLIMUS LEVEL BLOOD (BEAKER) (test wzbx=688) 8.3 ng/mL 5.0-15.0 BASIC METABOLIC [id number] 11:02:00* Test Item Value Reference Range Comments SODIUM (BEAKER) (test xscf=798) 134 meq/L 136-145 POTASSIUM (BEAKER) (test yher=391) 4.2 meq/L 3.5-5.1 CHLORIDE (BEAKER) (test nnfq=673) 102 meq/L 98-107 CO2 (BEAKER) (test volq=103) 25 meq/L 22-29 BLOOD UREA NITROGEN (BEAKER) (test mhyx=942) 19 mg/dL 7-21 CREATININE (BEAKER) (test pllt=615) 1.76 mg/dL 0.57-1.25 GLUCOSE RANDOM (BEAKER) (test jtba=158) 108 mg/dL 70-105 CALCIUM (BEAKER) (test kckl=611) 9.2 mg/dL 8.4-10.2 EGFR (BEAKER) (test cuss=1039) 34 mL/min/1.73 sq m ESTIMATED GFR IS NOT ACCURATE CREATININE CLEARANCE IN PREDICTING GLOMERULAR FILTRATION RATE. ESTIMATED GFR IS NOT APPLICABLE FOR DIALYSIS PATIENTS. CBC W/PLT COUNT & AUTO [id number] 10:32:00* Test Item Value Reference Range Comments WHITE BLOOD CELL COUNT (BEAKER) (test ofgr=954) 9.7 K/ L 3.5-10.5 RED BLOOD CELL COUNT (BEAKER) (test giln=239) 3.62 M/ L 3.93-5.22 HEMOGLOBIN (BEAKER) (test dzxb=857) 9.9 GM/DL 11.2-15.7 HEMATOCRIT (BEAKER) (test evtv=377) 30.1 % 34.1-44.9 MEAN CORPUSCULAR VOLUME (BEAKER) (test wirn=496) 83.1 fL 79.4-94.8 MEAN CORPUSCULAR HEMOGLOBIN (BEAKER) (test usqy=696) 27.3 pg 25.6-32.2 MEAN CORPUSCULAR HEMOGLOBIN CONC (BEAKER) (test ruty=558) 32.9 GM/DL 32.2-35.5 RED CELL DISTRIBUTION WIDTH (BEAKER) (test eegl=322) 15.5 % 11.7-14.4 PLATELET COUNT (BEAKER) (test iknj=468) 282 K/CU MM 150-450 MEAN PLATELET VOLUME (BEAKER) (test debb=242) 10.3 fL 9.4-12.3 NUCLEATED RED BLOOD CELLS (BEAKER) (test tfpp=844) 0 /100 WBC 0-0 NEUTROPHILS RELATIVE PERCENT (BEAKER) (test ndas=845) 69 % LYMPHOCYTES RELATIVE PERCENT (BEAKER) (test aatd=664) 21 % MONOCYTES RELATIVE PERCENT (BEAKER) (test okvr=358) 7 % EOSINOPHILS RELATIVE PERCENT (BEAKER) (test ottp=447) 1 % BASOPHILS RELATIVE PERCENT (BEAKER) (test mjbw=545) 1 % NEUTROPHILS ABSOLUTE COUNT (BEAKER) (test casa=408) 6.71 K/ L 1.56-6.13 LYMPHOCYTES ABSOLUTE COUNT (BEAKER) (test rszr=107) 2.05 K/ L 1.18-3.74 MONOCYTES ABSOLUTE COUNT (BEAKER) (test oyox=935) 0.72 K/ L 0.24-0.36 EOSINOPHILS ABSOLUTE COUNT (BEAKER) (test fpvl=207) 0.12 K/ L 0.04-0.36 BASOPHILS ABSOLUTE COUNT (BEAKER) (test piug=290) 0.07 K/ L 0.01-0.08 IMMATURE GRANULOCYTES-RELATIVE PERCENT (BEAKER) (test cnqm=5912) 0 % 0-1 C. DIFFICILE GDH [id number] 10:13:00* Test Item Value Reference Range Comments CDT TOXIN (test icwp=[id number]) Negative Negative CDT GDH ANTIGEN (test uxrq=[id number]) Positive Negative C. difficile present but toxin not detected. Indicates colonization with non-toxigenic strain or level of toxin below detectable levels. No need for enteric isolation. Treatment is rarely needed (only when strong clinical suspicion for Clostridium difficile infection) Testing performed by [employer] Rapid Cassette Assay. For GDH, published sensitivity of the assay is 98.7% compared to cytotoxicity testing. For Toxin AB, published sensitivity is 87.8% and specificity 99.4% compared to cytotoxicity testing.Ve rification of kit performance was done by the [facility] prior to cl inical use.SIROLIMUS [id number] 09:38:00* Test Item Value Reference Range Comments SIROLIMUS LEVEL BLOOD (BEAKER) (test fuan=332) 6.8 ng/mL 5.0-15.0 U/S, ABDOMINAL, [id number] 09:13:00Reason for exam:->abd distension, please evaluate for ascitesShould this be performed at the bedside?->NoFINAL REPORT TECHNIQUE: Focused grayscale ultrasound of the abdomen to assess for ascites. INDICATION: 32-year-old woman with abdominal d istention. COMPARISON: None. IMPRESSION:No ascites in the visualized abdomen. Si gned: Jocelyn España MDReport Verified Date/Time: 01/17/2018 09:13:56 Reading Location: [address] Ultrasound Reading Room OSPORINE [id number] 08:56:00* Test Item Value Reference Range Comments CYCLOSPORINE BLOOD (BEAKER) (test xjyn=360) < ng/mL <400 CBC W/PLT COUNT & AUTO [id number] 05:04:00* Test Item Value Reference Range Comments WHITE BLOOD CELL COUNT (BEAKER) (test rzfn=731) 5.6 K/ L 3.5-10.5 RED BLOOD CELL COUNT (BEAKER) (test ipaw=283) 3.50 M/ L 3.93-5.22 HEMOGLOBIN (BEAKER) (test vicq=845) 9.4 GM/DL 11.2-15.7 HEMATOCRIT (BEAKER) (test snmh=437) 29.9 % 34.1-44.9 MEAN CORPUSCULAR VOLUME (BEAKER) (test ugqz=116) 85.4 fL 79.4-94.8 MEAN CORPUSCULAR HEMOGLOBIN (BEAKER) (test pvzn=627) 26.9 pg 25.6-32.2 MEAN CORPUSCULAR HEMOGLOBIN CONC (BEAKER) (test ijwq=720) 31.4 GM/DL 32.2-35.5 RED CELL DISTRIBUTION WIDTH (BEAKER) (test ubes=885) 16.2 % 11.7-14.4 PLATELET COUNT (BEAKER) (test kvkh=951) 279 K/CU MM 150-450 MEAN PLATELET VOLUME (BEAKER) (test bwxb=590) 10.3 fL 9.4-12.3 NUCLEATED RED BLOOD CELLS (BEAKER) (test atbx=805) 0 /100 WBC 0-0 NEUTROPHILS RELATIVE PERCENT (BEAKER) (test qnva=577) 36 % LYMPHOCYTES RELATIVE PERCENT (BEAKER) (test klmt=735) 43 % MONOCYTES RELATIVE PERCENT (BEAKER) (test lnms=435) 12 % EOSINOPHILS RELATIVE PERCENT (BEAKER) (test yihz=840) 8 % BASOPHILS RELATIVE PERCENT (BEAKER) (test pzkp=544) 1 % NEUTROPHILS ABSOLUTE COUNT (BEAKER) (test zfbw=917) 2.02 K/ L 1.56-6.13 LYMPHOCYTES ABSOLUTE COUNT (BEAKER) (test spes=119) 2.38 K/ L 1.18-3.74 MONOCYTES ABSOLUTE COUNT (BEAKER) (test msha=974) 0.66 K/ L 0.24-0.36 EOSINOPHILS ABSOLUTE COUNT (BEAKER) (test lvbm=057) 0.46 K/ L 0.04-0.36 BASOPHILS ABSOLUTE COUNT (BEAKER) (test qirq=149) 0.05 K/ L 0.01-0.08 IMMATURE GRANULOCYTES-RELATIVE PERCENT (BEAKER) (test afqn=8668) 0 % 0-1 BASIC METABOLIC [id number] 04:58:00* Test Item Value Reference Range Comments SODIUM (BEAKER) (test lsxh=882) 139 meq/L 136-145 POTASSIUM (BEAKER) (test uzra=857) 4.1 meq/L 3.5-5.1 CHLORIDE (BEAKER) (test mrwm=935) 107 meq/L 98-107 CO2 (BEAKER) (test ysdu=766) 23 meq/L 22-29 BLOOD UREA NITROGEN (BEAKER) (test xfmh=950) 20 mg/dL 7-21 CREATININE (BEAKER) (test qjwd=827) 1.71 mg/dL 0.57-1.25 GLUCOSE RANDOM (BEAKER) (test lcvd=082) 130 mg/dL 70-105 CALCIUM (BEAKER) (test rhsv=894) 9.5 mg/dL 8.4-10.2 EGFR (BEAKER) (test vtfu=8745) 35 mL/min/1.73 sq m ESTIMATED GFR IS NOT ACCURATE CREATININE CLEARANCE IN PREDICTING GLOMERULAR FILTRATION RATE. ESTIMATED GFR IS NOT APPLICABLE FOR DIALYSIS PATIENTS. BASIC METABOLIC [id number] 07:21:00* Test Item Value Reference Range Comments SODIUM (BEAKER) (test byke=719) 135 meq/L 136-145 POTASSIUM (BEAKER) (test xokw=946) 4.1 meq/L 3.5-5.1 CHLORIDE (BEAKER) (test rimz=004) 103 meq/L 98-107 CO2 (BEAKER) (test exxj=063) 25 meq/L 22-29 BLOOD UREA NITROGEN (BEAKER) (test jpkl=113) 25 mg/dL 7-21 CREATININE (BEAKER) (test paah=077) 1.79 mg/dL 0.57-1.25 GLUCOSE RANDOM (BEAKER) (test hwes=482) 156 mg/dL 70-105 CALCIUM (BEAKER) (test mxlt=761) 9.0 mg/dL 8.4-10.2 EGFR (BEAKER) (test ajha=9114) 33 mL/min/1.73 sq m ESTIMATED GFR IS NOT ACCURATE CREATININE CLEARANCE IN PREDICTING GLOMERULAR FILTRATION RATE. ESTIMATED GFR IS NOT APPLICABLE FOR DIALYSIS PATIENTS. CBC W/PLT COUNT & AUTO [id number] 05:54:00* Test Item Value Reference Range Comments WHITE BLOOD CELL COUNT (BEAKER) (test yafb=210) 7.7 K/ L 3.5-10.5 RED BLOOD CELL COUNT (BEAKER) (test mvyh=021) 3.65 M/ L 3.93-5.22 HEMOGLOBIN (BEAKER) (test ljta=191) 9.8 GM/DL 11.2-15.7 HEMATOCRIT (BEAKER) (test omiu=681) 30.7 % 34.1-44.9 MEAN CORPUSCULAR VOLUME (BEAKER) (test mqbw=690) 84.1 fL 79.4-94.8 MEAN CORPUSCULAR HEMOGLOBIN (BEAKER) (test emlj=075) 26.8 pg 25.6-32.2 MEAN CORPUSCULAR HEMOGLOBIN CONC (BEAKER) (test prnq=918) 31.9 GM/DL 32.2-35.5 RED CELL DISTRIBUTION WIDTH (BEAKER) (test qogo=890) 16.3 % 11.7-14.4 PLATELET COUNT (BEAKER) (test bvxg=174) 304 K/CU MM 150-450 MEAN PLATELET VOLUME (BEAKER) (test kluc=230) 10.6 fL 9.4-12.3 NUCLEATED RED BLOOD CELLS (BEAKER) (test exuv=602) 0 /100 WBC 0-0 NEUTROPHILS RELATIVE PERCENT (BEAKER) (test jfhn=663) 53 % LYMPHOCYTES RELATIVE PERCENT (BEAKER) (test ybec=679) 32 % MONOCYTES RELATIVE PERCENT (BEAKER) (test vtou=828) 10 % EOSINOPHILS RELATIVE PERCENT (BEAKER) (test jxcn=786) 4 % BASOPHILS RELATIVE PERCENT (BEAKER) (test vewf=107) 1 % NEUTROPHILS ABSOLUTE COUNT (BEAKER) (test itlu=971) 4.09 K/ L 1.56-6.13 LYMPHOCYTES ABSOLUTE COUNT (BEAKER) (test pzom=103) 2.42 K/ L 1.18-3.74 MONOCYTES ABSOLUTE COUNT (BEAKER) (test ztgd=365) 0.74 K/ L 0.24-0.36 EOSINOPHILS ABSOLUTE COUNT (BEAKER) (test piht=349) 0.34 K/ L 0.04-0.36 BASOPHILS ABSOLUTE COUNT (BEAKER) (test vqwf=959) 0.05 K/ L 0.01-0.08 IMMATURE GRANULOCYTES-RELATIVE PERCENT (BEAKER) (test brcm=9806) 0 % 0-1 U/S, TRANSPLANT, [id number] 19:29:00Reason for exam:->EDEMAFINAL REPORT Transplant kidney ultrasound. Clinical History: EDEMA. [...] 44 cm/sec at the anastomosis and 11 cm /sec in the main renal vein. The acceleration times are normal. The acceleration indices are abnormal. Incidentally noted are ovarian cysts. They were not asses sed in detail. The resistive index in the upper, inter and lower polar regions a re 0.60, 0.57 and 0.60 respectively. No perinephric fluid collections are seen. The bladder contains 113 cc of urine. The patient had no urge to void. Impressio n:1. Transplant kidney caliectasis, minimally more pronounced than on previous.2 . Septated cyst identified, similar to previous.3. Abnormal acceleration indices , of doubtful significance given the normal anastomotic velocities.4. Ovarian cy sts, not assessed in detail. Pelvic ultrasound could be obtained as clinically i ndicated. The patient had a pelvic ultrasound on July 01, 2017. Signed: Kuldip Chappell MDReport Verified Date/Time: 01/15/2018 19:29:35 Reading Location: [address] Consult Reading Room LIMUS [id number] 12:10:00* Test Item Value Reference Range Comments SIROLIMUS LEVEL BLOOD (BEAKER) (test jsmy=124) 5.9 ng/mL 5.0-15.0 CYCLOSPORINE [id number] 10:53:00* Test Item Value Reference Range Comments CYCLOSPORINE BLOOD (BEAKER) (test xpch=573) < ng/mL <400 RAPID DRUG SCREEN, [id number] 10:45:00* Test Item Value Reference Range Comments BARBITURATE URINE (BEAKER) (test icso=077) Negative Negative BENZODIAZEPINE SCREEN URINE (BEAKER) (test fmby=771) Positive Negative COCAINE (METAB.) SCREEN (BEAKER) (test swch=4669) Negative Negative METHADONE SCREEN (BEAKER) (test wcuc=9983) Negative Negative OPIATE SCREEN URINE (BEAKER) (test lcag=517) Positive Negative CANNABINOID SCREEN URINE (BEAKER) (test bfct=791) Negative Negative AMPH/METHAMPH SCREEN (BEAKER) (test boyv=4510) Positive Negative PHENCYCLIDINE SCREEN URINE (BEAKER) (test zfud=144) Negative Negative OXYCODONE SCREEN URINE (BEAKER) (test rvll=7218) Negative Negative DRUG CUTOFF CONC.Cocaine 300 ng/mL Cannabinoid 50 ng/mL Benzodiazepine 200 ng/mLBarbiturate 200 ng/mLPh encyclidine 25 ng/mLOpiate 300 ng/mLMethadone 300 ng/mLAmphetamine/ 1000 ng/mL MethamphetamineOxycodone 300 ng/mLThis assay provides an unconfirmed qualitative test result for the cli nical management of patients in emergency situations. Chain of custody not maint ained. Some xiiv-kbq-ewxliii medications, as well as adulterants, may cause inac curate results. Clinical correlation should be applied. A more comprehensive sonal g screen or confirmation of a detected drug may be performed upon request.RAD, CHEST, 1 VIEW, NON [id number] 09:54:00Reason for exam:->EDEMAReason for exam:->renal transplant, short of breathIs the patient ?->NoShould this be performed at the bedside?->YesFINAL REPORT Chest one view INDICATION: Edema, renal transplant, short of breath COMPARISON: 02/18/2016 IMPRESSION: The cardiac silhouette is mildly enlarged. There is pulmonary vascular congestion. No lobar consolidation, significant pleural effusion, or pneumothorax is seen. There is mild right convex spine curvature. Signed: Hyacinth Mata MDReport Verified Date/Time: 01/15/2018 09:54:58 Reading Location: [facility] Radiology Reading Room B-TYPE NATRIURETIC FACTOR (BNP) 2018-01-15 09:44:00* Test Item Value Reference Range Comments B-TYPE NATRIURETIC PEPTIDE (BEAKER) (test wyye=153) 634 pg/mL 0-100 HEPATIC FUNCTION [id number] 09:39:00* Test Item Value Reference Range Comments TOTAL PROTEIN (BEAKER) (test dktr=668) 7.2 gm/dL 6.0-8.3 ALBUMIN (BEAKER) (test jwrm=7187) 3.8 g/dL 3.5-5.0 BILIRUBIN TOTAL (BEAKER) (test vuqr=310) 0.2 mg/dL 0.2-1.2 BILIRUBIN DIRECT (BEAKER) (test amjd=643) < mg/dL 0.1-0.5 ALKALINE PHOSPHATASE (BEAKER) (test qtez=339) 114 U/L 40-150 AST (SGOT) (BEAKER) (test cnot=721) 19 U/L 5-34 ALT (SGPT) (BEAKER) (test syxv=469) 17 U/L 6-55 Specimen slightly [id number] 09:30:00* Test Item Value Reference Range Comments PHOSPHORUS (BEAKER) (test puxu=458) 3.1 mg/dL 2.3-4.7 [id number] 09:30:00* Test Item Value Reference Range Comments MAGNESIUM (BEAKER) (test vsav=223) 1.9 mg/dL 1.6-2.6 BASIC METABOLIC [id number] 09:30:00* Test Item Value Reference Range Comments SODIUM (BEAKER) (test iene=178) 135 meq/L 136-145 POTASSIUM (BEAKER) (test owvc=796) 4.3 meq/L 3.5-5.1 CHLORIDE (BEAKER) (test jupr=239) 104 meq/L 98-107 CO2 (BEAKER) (test gfuf=853) 22 meq/L 22-29 BLOOD UREA NITROGEN (BEAKER) (test zzmm=460) 23 mg/dL 7-21 CREATININE (BEAKER) (test dpit=014) 1.68 mg/dL 0.57-1.25 GLUCOSE RANDOM (BEAKER) (test qasv=259) 97 mg/dL 70-105 CALCIUM (BEAKER) (test ivja=377) 9.6 mg/dL 8.4-10.2 EGFR (BEAKER) (test gatw=8276) 36 mL/min/1.73 sq m ESTIMATED GFR IS NOT ACCURATE CREATININE CLEARANCE IN PREDICTING GLOMERULAR FILTRATION RATE. ESTIMATED GFR IS NOT APPLICABLE FOR DIALYSIS PATIENTS. CBC W/PLT COUNT & AUTO [id number] 09:02:00* Test Item Value Reference Range Comments WHITE BLOOD CELL COUNT (BEAKER) (test fwjv=257) 9.6 K/ L 3.5-10.5 RED BLOOD CELL COUNT (BEAKER) (test moyz=452) 4.07 M/ L 3.93-5.22 HEMOGLOBIN (BEAKER) (test vvpr=724) 11.0 GM/DL 11.2-15.7 HEMATOCRIT (BEAKER) (test eahg=551) 35.7 % 34.1-44.9 MEAN CORPUSCULAR VOLUME (BEAKER) (test hmzk=573) 87.7 fL 79.4-94.8 MEAN CORPUSCULAR HEMOGLOBIN (BEAKER) (test wcmw=409) 27.0 pg 25.6-32.2 MEAN CORPUSCULAR HEMOGLOBIN CONC (BEAKER) (test kimv=900) 30.8 GM/DL 32.2-35.5 RED CELL DISTRIBUTION WIDTH (BEAKER) (test phuq=349) 16.1 % 11.7-14.4 PLATELET COUNT (BEAKER) (test elhy=785) 327 K/CU MM 150-450 MEAN PLATELET VOLUME (BEAKER) (test cxqw=784) 10.4 fL 9.4-12.3 NUCLEATED RED BLOOD CELLS (BEAKER) (test ppbm=693) 0 /100 WBC 0-0 NEUTROPHILS RELATIVE PERCENT (BEAKER) (test uhis=937) 54 % LYMPHOCYTES RELATIVE PERCENT (BEAKER) (test uzjz=651) 34 % MONOCYTES RELATIVE PERCENT (BEAKER) (test xazu=082) 9 % EOSINOPHILS RELATIVE PERCENT (BEAKER) (test qdan=438) 3 % BASOPHILS RELATIVE PERCENT (BEAKER) (test idur=565) 1 % NEUTROPHILS ABSOLUTE COUNT (BEAKER) (test gxoa=383) 5.16 K/ L 1.56-6.13 LYMPHOCYTES ABSOLUTE COUNT (BEAKER) (test gaou=160) 3.21 K/ L 1.18-3.74 MONOCYTES ABSOLUTE COUNT (BEAKER) (test jepm=340) 0.82 K/ L 0.24-0.36 EOSINOPHILS ABSOLUTE COUNT (BEAKER) (test byxh=372) 0.32 K/ L 0.04-0.36 BASOPHILS ABSOLUTE COUNT (BEAKER) (test nwta=000) 0.05 K/ L 0.01-0.08 IMMATURE GRANULOCYTES-RELATIVE PERCENT (BEAKER) (test slua=7928) 0 % 0-1 URINALYSIS W/ REFLEX URINE [id number] 08:37:00* Test Item Value Reference Range Comments COLOR (BEAKER) (test fqvk=124) Yellow CLARITY (BEAKER) (test ufjs=494) Cloudy SPECIFIC GRAVITY UA (BEAKER) (test qczs=713) 1.014 1.001-1.035 PH UA (BEAKER) (test olbn=953) 6.0 5.0-8.0 PROTEIN UA (BEAKER) (test kwkh=136) 100 mg/dL Negative GLUCOSE UA (BEAKER) (test lfir=211) Negative Negative KETONES UA (BEAKER) (test qsjy=037) Negative Negative BILIRUBIN UA (BEAKER) (test peeg=645) Negative Negative BLOOD UA (BEAKER) (test kysd=498) Moderate Negative NITRITE UA (BEAKER) (test tsub=021) Positive Negative LEUKOCYTE ESTERASE UA (BEAKER) (test qzro=663) Large Negative UROBILINOGEN UA (BEAKER) (test tjvp=287) 0.2 mg/dL 0.2-1.0 RBC UA (BEAKER) (test vtkj=624) 48 /HPF WBC UA (BEAKER) (test rmtj=518) 1795 /HPF BACTERIA (BEAKER) (test cteq=911) Moderate SQUAMOUS EPITHELIAL (BEAKER) (test srra=440) 1 /HPF SOURCE(BEAKER) (test gpme=0386) SCREEN, [id number] 08:19:00* Test Item Value Reference Range Comments TEST URINE (BEAKER) (test ndnr=424) Negative BASIC METABOLIC [id number] 14:56:00* Test Item Value Reference Range Comments SODIUM (BEAKER) (test sutz=535) 136 meq/L 136-145 This is a corrected result. Previous result was 133 meq/L on 08/22/2017 at 0755 CDT POTASSIUM (BEAKER) (test mtbq=477) 4.4 meq/L 3.5-5.1 CHLORIDE (BEAKER) (test whoh=100) 106 meq/L 98-107 CO2 (BEAKER) (test awqz=129) 22 meq/L 22-29 BLOOD UREA NITROGEN (BEAKER) (test xqzf=000) 16 mg/dL 7-21 CREATININE (BEAKER) (test vkqd=860) 1.13 mg/dL 0.57-1.25 GLUCOSE RANDOM (BEAKER) (test jqgk=119) 101 mg/dL 70-105 CALCIUM (BEAKER) (test sjqg=866) 8.9 mg/dL 8.4-10.2 EGFR (BEAKER) (test kzdi=9936) 57 mL/min/1.73 sq m ESTIMATED GFR IS NOT ACCURATE CREATININE CLEARANCE IN PREDICTING GLOMERULAR FILTRATION RATE. ESTIMATED GFR IS NOT APPLICABLE FOR DIALYSIS PATIENTS. URINE [id number] 11:16:00* Test Item Value Reference Range Comments CULTURE (BEAKER) (test lbqe=0420) Amikacin (test code=1) Ampicillin + Sulbactam (test code=6) Aztreonam (test code=32) Cefepime (test code=51) Cefoxitin (test code=68) Ceftazidime (test code=27) Ceftriaxone (test code=52) Ertapenem (test code=38) Gentamicin (test code=18) Levofloxacin (test code=22) Meropenem (test code=34) Nitrofurantoin (test code=23) Piperacillin + Tazobactam (test code=29) Tetracycline (test code=2) Tobramycin (test code=25) Trimethoprim + Sulfamethoxazole (test code=47) CULTURE (BEAKER) (test nuar=4887) >100,000 col/mL Escherichia coli CULTURE (BEAKER) (test wwru=7477) <10,000 col/mL Beta-hemolytic streptococcus group A, by serological grouping [id number] 07:55:00* Test Item Value Reference Range Comments MAGNESIUM (BEAKER) (test ckeg=720) 1.4 mg/dL 1.6-2.6 CYCLOSPORINE [id number] 10:44:00* Test Item Value Reference Range Comments CYCLOSPORINE BLOOD (BEAKER) (test rkmf=504) < ng/mL <400 SIROLIMUS [id number] 09:46:00* Test Item Value Reference Range Comments SIROLIMUS LEVEL BLOOD (BEAKER) (test rumn=133) 9.4 ng/mL 5.0-15.0 [id number] 08:59:00* Test Item Value Reference Range Comments MAGNESIUM (BEAKER) (test cuxj=722) 1.3 mg/dL 1.6-2.6 BASIC METABOLIC [id number] 08:59:00* Test Item Value Reference Range Comments SODIUM (BEAKER) (test otbj=369) 136 meq/L 136-145 POTASSIUM (BEAKER) (test wtus=723) 3.9 meq/L 3.5-5.1 CHLORIDE (BEAKER) (test vbua=950) 109 meq/L 98-107 CO2 (BEAKER) (test ruax=678) 19 meq/L 22-29 BLOOD UREA NITROGEN (BEAKER) (test armc=948) 16 mg/dL 7-21 CREATININE (BEAKER) (test ddht=103) 1.24 mg/dL 0.57-1.25 GLUCOSE RANDOM (BEAKER) (test nudt=803) 83 mg/dL 70-105 CALCIUM (BEAKER) (test fqfa=725) 8.3 mg/dL 8.4-10.2 EGFR (BEAKER) (test wuot=5105) 51 mL/min/1.73 sq m ESTIMATED GFR IS NOT ACCURATE CREATININE CLEARANCE IN PREDICTING GLOMERULAR FILTRATION RATE. ESTIMATED GFR IS NOT APPLICABLE FOR DIALYSIS PATIENTS. [id number] 13:45:00* Test Item Value Reference Range Comments MAGNESIUM (BEAKER) (test fefo=393) 1.5 mg/dL 1.6-2.6 Specimen slightly hemolyzed BASIC METABOLIC [id number] 11:01:00* Test Item Value Reference Range Comments SODIUM (BEAKER) (test cqrn=966) 134 meq/L 136-145 POTASSIUM (BEAKER) (test zurm=105) 4.1 meq/L 3.5-5.1 Specimen slightly hemolyzed CHLORIDE (BEAKER) (test lszj=840) 107 meq/L 98-107 CO2 (BEAKER) (test obxs=939) 17 meq/L 22-29 BLOOD UREA NITROGEN (BEAKER) (test dfcm=553) 20 mg/dL 7-21 CREATININE (BEAKER) (test xacb=294) 1.51 mg/dL 0.57-1.25 Specimen slightly hemolyzed GLUCOSE RANDOM (BEAKER) (test siut=252) 90 mg/dL 70-105 CALCIUM (BEAKER) (test rtss=370) 8.7 mg/dL 8.4-10.2 EGFR (BEAKER) (test znhq=8569) 40 mL/min/1.73 sq m ESTIMATED GFR IS NOT ACCURATE CREATININE CLEARANCE IN PREDICTING GLOMERULAR FILTRATION RATE. ESTIMATED GFR IS NOT APPLICABLE FOR DIALYSIS PATIENTS. COMPREHENSIVE METABOLIC [id number] 11:01:00* Test Item Value Reference Range Comments TOTAL PROTEIN (BEAKER) (test osdq=509) 6.2 gm/dL 6.0-8.3 Specimen slightly hemolyzed ALBUMIN (BEAKER) (test skar=8688) 3.3 g/dL 3.5-5.0 Specimen slightly hemolyzed ALKALINE PHOSPHATASE (BEAKER) (test elub=864) 99 U/L 40-150 BILIRUBIN TOTAL (BEAKER) (test riyj=704) < mg/dL 0.2-1.2 Specimen slightly hemolyzed SODIUM (BEAKER) (test akff=092) 134 meq/L 136-145 POTASSIUM (BEAKER) (test ixif=183) 4.1 meq/L 3.5-5.1 Specimen slightly hemolyzed CHLORIDE (BEAKER) (test vppo=846) 107 meq/L 98-107 CO2 (BEAKER) (test thvb=411) 17 meq/L 22-29 BLOOD UREA NITROGEN (BEAKER) (test xxqf=429) 20 mg/dL 7-21 CREATININE (BEAKER) (test cjnx=389) 1.51 mg/dL 0.57-1.25 Specimen slightly hemolyzed GLUCOSE RANDOM (BEAKER) (test tnqw=441) 90 mg/dL 70-105 CALCIUM (BEAKER) (test jsvd=539) 8.7 mg/dL 8.4-10.2 AST (SGOT) (BEAKER) (test rtxm=827) 37 U/L 5-34 Specimen slightly hemolyzed ALT (SGPT) (BEAKER) (test baej=290) 17 U/L 6-55 Specimen slightly hemolyzed EGFR (BEAKER) (test ptzy=2345) 40 mL/min/1.73 sq m ESTIMATED GFR IS NOT ACCURATE CREATININE CLEARANCE IN PREDICTING GLOMERULAR FILTRATION RATE. ESTIMATED GFR IS NOT APPLICABLE FOR DIALYSIS PATIENTS. [id number] 11:01:00* Test Item Value Reference Range Comments LIPASE (BEAKER) (test zsaq=646) 52 U/L 8-78 HCG, QUANTITATIVE, [id number] 07:10:00* Test Item Value Reference Range Comments GONADOTROPIN, CHORIONIC (HCG) QUANT (BEAKER) (test xkqn=183) < mIU/mL 0-10 Non- Females: <10 mIU/mL Females: Gestation Age Reference Range(mIU/mL) 0.2-1 Week 5-50 1-2 Weeks 50-500 2-3 Weeks 100-5,000 3-4 Weeks 500-10,000 4-5 Weeks 1,000-50,000 5-6 Weeks 10,000-100,000 6-8 Weeks 15,000-200,000 2-3 Months 10,000-100,000 CBC W/PLT COUNT & AUTO [id number] 06:46:00* Test Item Value Reference Range Comments WHITE BLOOD CELL COUNT (BEAKER) (test gdxb=851) 6.3 K/ L 3.5-10.5 RED BLOOD CELL COUNT (BEAKER) (test gflq=113) 3.91 M/ L 3.93-5.22 HEMOGLOBIN (BEAKER) (test qepx=987) 10.3 GM/DL 11.2-15.7 HEMATOCRIT (BEAKER) (test fyly=825) 32.6 % 34.1-44.9 MEAN CORPUSCULAR VOLUME (BEAKER) (test zyki=247) 83.4 fL 79.4-94.8 MEAN CORPUSCULAR HEMOGLOBIN (BEAKER) (test tgbi=039) 26.3 pg 25.6-32.2 MEAN CORPUSCULAR HEMOGLOBIN CONC (BEAKER) (test nfql=893) 31.6 GM/DL 32.2-35.5 RED CELL DISTRIBUTION WIDTH (BEAKER) (test rzhx=072) 14.0 % 11.7-14.4 PLATELET COUNT (BEAKER) (test keru=187) 192 K/CU MM 150-450 MEAN PLATELET VOLUME (BEAKER) (test nolb=425) 10.0 fL 9.4-12.3 NUCLEATED RED BLOOD CELLS (BEAKER) (test evkl=485) 0 /100 WBC 0-0 NEUTROPHILS RELATIVE PERCENT (BEAKER) (test xsqs=780) 46 % LYMPHOCYTES RELATIVE PERCENT (BEAKER) (test haid=849) 34 % MONOCYTES RELATIVE PERCENT (BEAKER) (test ocfm=277) 14 % EOSINOPHILS RELATIVE PERCENT (BEAKER) (test fvuv=303) 4 % BASOPHILS RELATIVE PERCENT (BEAKER) (test zrwo=120) 1 % NEUTROPHILS ABSOLUTE COUNT (BEAKER) (test kntd=629) 2.92 K/ L 1.56-6.13 LYMPHOCYTES ABSOLUTE COUNT (BEAKER) (test qtam=383) 2.17 K/ L 1.18-3.74 MONOCYTES ABSOLUTE COUNT (BEAKER) (test cbgg=246) 0.90 K/ L 0.24-0.36 EOSINOPHILS ABSOLUTE COUNT (BEAKER) (test giks=154) 0.27 K/ L 0.04-0.36 BASOPHILS ABSOLUTE COUNT (BEAKER) (test wbuw=418) 0.03 K/ L 0.01-0.08 IMMATURE GRANULOCYTES-RELATIVE PERCENT (BEAKER) (test xqjc=5623) 0 % 0-1 U/S, TRANSPLANT, [id number] 01:39:00Reason for exam:->transplantFINAL REPORT Exam: Ultrasound transplant kidney Clinical History: Transplant kidney. Pain per patient. Comparison: Renal transplant ult rasound 05/31/2016 Technique: Renal transplant ultrasound was performed with Hoppit Doppler. Findings: There is a left lower quadrant renal transplant graft wh ich measures 11.3 x 5 x 5.1 cm with cortical thickness of 1.4 cm . The renal ech ogenicity is normal. Again seen is a 2.9 x 2.3 x 2.8 cm upper pole cyst. There i s no perinephric collection, hydronephrosis or shadowing stone. The urinary blad mary is mildly distended with a volume of 50 cc. Doppler evaluation of the transp lant kidney demonstrates patency and normal vascular waveforms of the external i liac artery, arterial anastomosis, main renal artery, external iliac vein, venou s anastomosis, and main renal vein. There is no velocity gradient to suggest sig nificant stenosis. The peak arterial systolic velocity at the iliac limb above the anastomosis is 127 cm/sec, 99.0 cm/sec at the anastomosis and 93.5 cm/sec in the main renal artery. .The peak venous systolic velocity is 28.4 cm/sec at the iliac limb above the anastomosis, 51.0 cm/sec at the anastomosis and 15.9 cm/sec in the main renal vein. The resistive indices in the upper, inter and lower po lar regions are 0.57, 0.63 and 0.66 respectively. The acceleration times and acc eleration indices are normal. Impression: Left lower quadrant transplant kidney with 2.9 cm upper pole cyst. No hydronephrosis. No evidence of renal artery sten osis. Signed: Blanche [place] Verified Date/Time: 08/20/2017 01:39:03 Re ading Location: [address] Reading Room ALYSIS W/ MICROSCOPIC 2017-08-20 00:41:00* Test Item Value Reference Range Comments COLOR (BEAKER) (test lmvy=039) Light Yellow CLARITY (BEAKER) (test ohte=561) Hazy SPECIFIC GRAVITY UA (BEAKER) (test itmd=141) 1.008 1.001-1.035 PH UA (BEAKER) (test fxgf=235) 5.5 5.0-8.0 PROTEIN UA (BEAKER) (test bibp=453) Negative Negative GLUCOSE UA (BEAKER) (test nrih=796) Negative Negative KETONES UA (BEAKER) (test kxil=005) Negative Negative BILIRUBIN UA (BEAKER) (test cnvq=214) Negative Negative BLOOD UA (BEAKER) (test ndst=947) Negative Negative NITRITE UA (BEAKER) (test yvvq=256) Positive Negative LEUKOCYTE ESTERASE UA (BEAKER) (test djtw=809) Small Negative UROBILINOGEN UA (BEAKER) (test lxtv=594) 0.2 mg/dL 0.2-1.0 RBC UA (BEAKER) (test fnjz=368) 1 /HPF WBC UA (BEAKER) (test whin=180) 6 /HPF BACTERIA (BEAKER) (test qijd=590) Rare SQUAMOUS EPITHELIAL (BEAKER) (test hccl=125) 4 /HPF SOURCE(BEAKER) (test fnaj=5627) Urine, Voided U/S, PELVIS, WITH ENDOVAG AND [id number] 14:45:00Reason for exam:-> ABDOMINAL PAINFINAL REPORT ULTRASOUND PELVIS, ULTRASOUND TRANSVAGINAL, ULTRASOUND DUPLEX DOPPLER HISTORY: Pelvic pain COMPARISON: Pelvic ultrasound of 06/01/2016 TECHNIQUE: Real-time ultrasound of the pelvis was performed transabdominally and transvaginally. Examination included color and spectral Doppler evaluation of the ovaries. FINDINGS: The uterus measures 3.1 x 4.4 x 6.6 cm in size. No uterine mass lesion is visualized. The endometrial stripe measures 6 mm, normal in caliber. There is a 2.4 x 2.8 x 3.1 cm complex cystic mass in the right adnexal region. This tear measures low level internal echoes and an internal septation. No vascularity is seen within this on color Doppler. No normal right ovarian tissue is seen. The left ovary measures 3.0 x 3.2 x 4.2 cm. cm. There is a 2.9 x 3.0 x 4.0 cm complex cystic left adnexal mass with some simple fluid and some low-level internal echoes as well as a septation. With color Doppler, no vascularity is seen within this. Normal arterial and venous waveforms are present in the left ovary. A small volume of anechoic free fluid is noted in the right lower quadrant. IMPRESSION: 1. Bilateral complex cystic adnexal masses, as detailed above. No internal vascularity is seen with color flow imaging. In a young female patient, these most likely represent complex/hemorrhagic ovarian cysts. 2. No uterine abnormality is visualized. Signed: Danilo Nichols MDReport Verified Date/Time: 07/01/2017 14:45:03 Reading Location: [address] Reading Room ALYSIS W/ REFLEX URINE [id number] 14:19:00* Test Item Value Reference Range Comments COLOR (BEAKER) (test yald=431) Yellow CLARITY (BEAKER) (test vwhp=264) Hazy SPECIFIC GRAVITY UA (BEAKER) (test msso=102) 1.020 1.001-1.035 PH UA (BEAKER) (test vcpj=973) 6.5 5.0-8.0 PROTEIN UA (BEAKER) (test cdqj=510) 30 mg/dL Negative GLUCOSE UA (BEAKER) (test vjwo=628) Negative Negative KETONES UA (BEAKER) (test ufga=484) Negative Negative BILIRUBIN UA (BEAKER) (test tuae=797) Negative Negative BLOOD UA (BEAKER) (test frhm=806) Moderate Negative NITRITE UA (BEAKER) (test cnnr=762) Negative Negative LEUKOCYTE ESTERASE UA (BEAKER) (test zjsy=211) Small Negative UROBILINOGEN UA (BEAKER) (test ihxw=922) 0.2 mg/dL 0.2-1.0 RBC UA (BEAKER) (test ddop=585) 0 /HPF WBC UA (BEAKER) (test ndko=950) > /HPF BACTERIA (BEAKER) (test rgsb=414) Occasional MUCUS (BEAKER) (test rybr=7120) Rare SQUAMOUS EPITHELIAL (BEAKER) (test sotu=831) 3 /HPF SOURCE(BEAKER) (test mqwk=6494) RAPID DRUG SCREEN, [id number] 14:04:00* Test Item Value Reference Range Comments BARBITURATE URINE (BEAKER) (test cqtz=858) Negative Negative BENZODIAZEPINE SCREEN URINE (BEAKER) (test rftu=558) Positive Negative COCAINE (METAB.) SCREEN (BEAKER) (test rolv=1063) Negative Negative METHADONE SCREEN (BEAKER) (test wzjh=2668) Negative Negative OPIATE SCREEN URINE (BEAKER) (test ywvi=732) Positive Negative CANNABINOID SCREEN URINE (BEAKER) (test smmi=695) Positive Negative AMPH/METHAMPH SCREEN (BEAKER) (test lfzg=0101) Positive Negative PHENCYCLIDINE SCREEN URINE (BEAKER) (test rudv=295) Negative Negative OXYCODONE SCREEN URINE (BEAKER) (test vpzx=2863) Negative Negative DRUG CUTOFF CONC.Cocaine 300 ng/mL Cannabinoid 50 ng/mL Benzodiazepine 200 ng/mLBarbiturate 200 ng/mLPh encyclidine 25 ng/mLOpiate 300 ng/mLMethadone 300 ng/mLAmphetamine/ 1000 ng/mL MethamphetamineOxycodone 300 ng/mLThis assay provides an unconfirmed qualitative test result for the cli nical management of patients in emergency situations. Chain of custody not maint ained. Some usfv-vjw-dysujfv medications, as well as adulterants, may cause inac curate results. Clinical correlation should be applied. A more comprehensive sonal g screen or confirmation of a detected drug may be performed upon request. SCREEN, [id number] 13:44:00* Test Item Value Reference Range Comments TEST URINE (BEAKER) (test jxuj=852) Negative COMPREHENSIVE METABOLIC [id number] 13:23:00* Test Item Value Reference Range Comments TOTAL PROTEIN (BEAKER) (test ssab=798) 7.1 gm/dL 6.0-8.3 ALBUMIN (BEAKER) (test psan=0511) 3.6 g/dL 3.5-5.0 ALKALINE PHOSPHATASE (BEAKER) (test xzvh=113) 93 U/L 40-150 BILIRUBIN TOTAL (BEAKER) (test ryhy=641) < mg/dL 0.2-1.2 SODIUM (BEAKER) (test bjkg=003) 135 meq/L 136-145 POTASSIUM (BEAKER) (test xuxn=717) 4.1 meq/L 3.5-5.1 CHLORIDE (BEAKER) (test gqhb=486) 108 meq/L 98-107 CO2 (BEAKER) (test zjvo=780) 20 meq/L 22-29 BLOOD UREA NITROGEN (BEAKER) (test qbkr=794) 11 mg/dL 7-21 CREATININE (BEAKER) (test asba=775) 1.21 mg/dL 0.57-1.25 GLUCOSE RANDOM (BEAKER) (test mvgx=266) 140 mg/dL 70-105 CALCIUM (BEAKER) (test yxhz=848) 9.4 mg/dL 8.4-10.2 AST (SGOT) (BEAKER) (test alxr=410) 11 U/L 5-34 ALT (SGPT) (BEAKER) (test wjog=336) 6 U/L 6-55 EGFR (BEAKER) (test qfey=1259) 52 mL/min/1.73 sq m ESTIMATED GFR IS NOT ACCURATE CREATININE CLEARANCE IN PREDICTING GLOMERULAR FILTRATION RATE. ESTIMATED GFR IS NOT APPLICABLE FOR DIALYSIS PATIENTS. CBC W/PLT COUNT & AUTO [id number] 12:59:00* Test Item Value Reference Range Comments WHITE BLOOD CELL COUNT (BEAKER) (test gtnp=934) 6.5 K/ L 3.5-10.5 RED BLOOD CELL COUNT (BEAKER) (test ygzd=888) 4.61 M/ L 3.93-5.22 HEMOGLOBIN (BEAKER) (test hwkw=907) 12.1 GM/DL 11.2-15.7 HEMATOCRIT (BEAKER) (test qvle=157) 37.5 % 34.1-44.9 MEAN CORPUSCULAR VOLUME (BEAKER) (test uybo=719) 81.3 fL 79.4-94.8 MEAN CORPUSCULAR HEMOGLOBIN (BEAKER) (test ewom=002) 26.2 pg 25.6-32.2 MEAN CORPUSCULAR HEMOGLOBIN CONC (BEAKER) (test yfoc=827) 32.3 GM/DL 32.2-35.5 RED CELL DISTRIBUTION WIDTH (BEAKER) (test lfqw=966) 14.4 % 11.7-14.4 PLATELET COUNT (BEAKER) (test rbpb=154) 193 K/CU MM 150-450 MEAN PLATELET VOLUME (BEAKER) (test vvlc=000) 9.9 fL 9.4-12.3 NUCLEATED RED BLOOD CELLS (BEAKER) (test bnqu=198) 0 /100 WBC 0-0 NEUTROPHILS RELATIVE PERCENT (BEAKER) (test qzbs=831) 60 % LYMPHOCYTES RELATIVE PERCENT (BEAKER) (test amdq=127) 30 % MONOCYTES RELATIVE PERCENT (BEAKER) (test xpbc=775) 8 % EOSINOPHILS RELATIVE PERCENT (BEAKER) (test nabc=304) 1 % BASOPHILS RELATIVE PERCENT (BEAKER) (test nuso=997) 1 % NEUTROPHILS ABSOLUTE COUNT (BEAKER) (test iwdk=987) 3.90 K/ L 1.56-6.13 LYMPHOCYTES ABSOLUTE COUNT (BEAKER) (test zvzw=797) 1.97 K/ L 1.18-3.74 MONOCYTES ABSOLUTE COUNT (BEAKER) (test xjaa=167) 0.49 K/ L 0.24-0.36 EOSINOPHILS ABSOLUTE COUNT (BEAKER) (test nmjg=111) 0.08 K/ L 0.04-0.36 BASOPHILS ABSOLUTE COUNT (BEAKER) (test edjq=253) 0.03 K/ L 0.01-0.08 IMMATURE GRANULOCYTES-RELATIVE PERCENT (BEAKER) (test nibw=2048) 0 % 0-1 BODY FLUID CULTURE + GRAM [id number] 09:45:00* Test Item Value Reference Range Comments CULTURE (BEAKER) (test cbgt=2021) No growth GRAM STAIN RESULT (BEAKER) (test zqiq=2875) 1+ WBCs GRAM STAIN RESULT (BEAKER) (test nhrq=28977) No organisms seen CBC W/PLT COUNT & AUTO [id number] 15:38:00* Test Item Value Reference Range Comments WHITE BLOOD CELL COUNT (BEAKER) (test ujok=359) 4.9 K/ L 4.0-10.0 RED BLOOD CELL COUNT (BEAKER) (test oike=406) 3.71 M/ L 4.00-5.00 HEMOGLOBIN (BEAKER) (test zbma=520) 11.1 GM/DL 12.0-15.0 HEMATOCRIT (BEAKER) (test sdiu=250) 30.3 % 36.0-45.0 MEAN CORPUSCULAR VOLUME (BEAKER) (test flzg=131) 81.7 fL 82.0-99.0 MEAN CORPUSCULAR HEMOGLOBIN (BEAKER) (test netf=034) 29.9 pg 27.0-33.0 MEAN CORPUSCULAR HEMOGLOBIN CONC (BEAKER) (test ahlf=638) 36.6 GM/DL 32.0-36.0 RED CELL DISTRIBUTION WIDTH (BEAKER) (test qyit=137) 13.8 % 10.3-14.2 PLATELET COUNT (BEAKER) (test azvb=289) 173 K/CU MM 150-430 MEAN PLATELET VOLUME (BEAKER) (test ezmu=885) 7.8 fL 6.5-10.5 NUCLEATED RED BLOOD CELLS (BEAKER) (test qpng=531) 0 /100 WBC 0-0 NEUTROPHILS RELATIVE PERCENT (BEAKER) (test jumq=666) 40 % LYMPHOCYTES RELATIVE PERCENT (BEAKER) (test idfo=605) 45 % MONOCYTES RELATIVE PERCENT (BEAKER) (test znzo=400) 10 % EOSINOPHILS RELATIVE PERCENT (BEAKER) (test fywi=192) 4 % BASOPHILS RELATIVE PERCENT (BEAKER) (test ixoi=198) 0 % NEUTROPHILS ABSOLUTE COUNT (BEAKER) (test wlyw=278) 1.98 K/ L 1.80-8.00 LYMPHOCYTES ABSOLUTE COUNT (BEAKER) (test lgro=462) 2.23 K/ L 1.48-4.50 MONOCYTES ABSOLUTE COUNT (BEAKER) (test ktho=136) 0.50 K/ L 0.00-1.30 EOSINOPHILS ABSOLUTE COUNT (BEAKER) (test cofy=050) 0.18 K/ L 0.00-0.50 BASOPHILS ABSOLUTE COUNT (BEAKER) (test mczh=221) 0.02 K/ L 0.00-0.20 0.00(MANUAL DIFFERENTIAL)2016-07-22 15:38:00* Test Item Value Reference Range Comments TOTAL COUNTED (BEAKER) (test pjbi=3721) WBC MORPHOLOGY (BEAKER) (test ysyk=638) Normal PLT MORPHOLOGY (BEAKER) (test mlqu=237) Normal RBC MORPHOLOGY (BEAKER) (test cujg=059) Normal [id number] 14:08:00* Test Item Value Reference Range Comments PHOSPHORUS (BEAKER) (test ykyy=629) 3.0 mg/dL 2.3-4.7 [id number] 14:08:00* Test Item Value Reference Range Comments MAGNESIUM (BEAKER) (test lixo=971) 1.4 mg/dL 1.6-2.6 BASIC METABOLIC [id number] 14:08:00* Test Item Value Reference Range Comments SODIUM (BEAKER) (test fadx=626) 137 meq/L 136-145 POTASSIUM (BEAKER) (test mjcn=897) 3.9 meq/L 3.5-5.1 CHLORIDE (BEAKER) (test whoh=409) 108 meq/L 98-107 CO2 (BEAKER) (test zrsc=552) 22 meq/L 22-29 BLOOD UREA NITROGEN (BEAKER) (test oifo=164) 9 mg/dL 7-21 CREATININE (BEAKER) (test zujk=421) 1.33 mg/dL 0.57-1.25 GLUCOSE RANDOM (BEAKER) (test bjlv=288) 101 mg/dL 70-105 CALCIUM (BEAKER) (test aiqe=433) 9.1 mg/dL 8.4-10.2 EGFR (BEAKER) (test ynbv=0354) 47 mL/min/1.73 sq m ESTIMATED GFR IS NOT ACCURATE CREATININE CLEARANCE IN PREDICTING GLOMERULAR FILTRATION RATE. ESTIMATED GFR IS NOT APPLICABLE FOR DIALYSIS PATIENTS. URINE [id number] 10:05:00* Test Item Value Reference Range Comments CULTURE (BEAKER) (test fryo=6711) ESCHERICHIA COLI >100,000 col/mL Escherichia coli Amikacin (test code=1) Ampicillin + Sulbactam (test code=6) Aztreonam (test code=32) Cefepime (test code=51) Cefoxitin (test code=68) Ceftazidime (test code=27) Ceftriaxone (test code=52) Ertapenem (test code=38) Gentamicin (test code=18) Levofloxacin (test code=22) Meropenem (test code=34) Nitrofurantoin (test code=23) Piperacillin + Tazobactam (test code=29) Tetracycline (test code=2) Tobramycin (test code=25) Trimethoprim + Sulfamethoxazole (test code=47) 10-19,000 col/mL skin [id number] 06:11:00* Test Item Value Reference Range Comments PHOSPHORUS (BEAKER) (test znmw=346) 2.4 mg/dL 2.3-4.7 [id number] 06:11:00* Test Item Value Reference Range Comments MAGNESIUM (BEAKER) (test cmkl=092) 1.4 mg/dL 1.6-2.6 BASIC METABOLIC [id number] 06:11:00* Test Item Value Reference Range Comments SODIUM (BEAKER) (test rqvo=683) 134 meq/L 136-145 POTASSIUM (BEAKER) (test ypqc=114) 3.8 meq/L 3.5-5.1 CHLORIDE (BEAKER) (test ozxf=441) 108 meq/L 98-107 CO2 (BEAKER) (test mdip=604) 19 meq/L 22-29 BLOOD UREA NITROGEN (BEAKER) (test ovlw=892) 14 mg/dL 7-21 CREATININE (BEAKER) (test ivis=181) 1.47 mg/dL 0.57-1.25 GLUCOSE RANDOM (BEAKER) (test adtu=966) 124 mg/dL 70-105 CALCIUM (BEAKER) (test lxjw=572) 8.2 mg/dL 8.4-10.2 EGFR (BEAKER) (test jbte=8348) 42 mL/min/1.73 sq m ESTIMATED GFR IS NOT ACCURATE CREATININE CLEARANCE IN PREDICTING GLOMERULAR FILTRATION RATE. ESTIMATED GFR IS NOT APPLICABLE FOR DIALYSIS PATIENTS. CBC W/PLT COUNT & AUTO [id number] 06:02:00* Test Item Value Reference Range Comments WHITE BLOOD CELL COUNT (BEAKER) (test aubb=052) 8.2 K/ L 4.0-10.0 RED BLOOD CELL COUNT (BEAKER) (test kthl=800) 3.56 M/ L 4.00-5.00 HEMOGLOBIN (BEAKER) (test cbfj=385) 10.1 GM/DL 12.0-15.0 HEMATOCRIT (BEAKER) (test guqh=222) 29.2 % 36.0-45.0 MEAN CORPUSCULAR VOLUME (BEAKER) (test btia=698) 82.0 fL 82.0-99.0 MEAN CORPUSCULAR HEMOGLOBIN (BEAKER) (test fbxm=576) 28.3 pg 27.0-33.0 MEAN CORPUSCULAR HEMOGLOBIN CONC (BEAKER) (test rqbo=415) 34.5 GM/DL 32.0-36.0 RED CELL DISTRIBUTION WIDTH (BEAKER) (test boyg=955) 14.5 % 10.3-14.2 PLATELET COUNT (BEAKER) (test ayzy=061) 148 K/CU MM 150-430 MEAN PLATELET VOLUME (BEAKER) (test axkz=575) 8.3 fL 6.5-10.5 NUCLEATED RED BLOOD CELLS (BEAKER) (test ujap=244) 0 /100 WBC 0-0 NEUTROPHILS RELATIVE PERCENT (BEAKER) (test wlxc=314) 62 % LYMPHOCYTES RELATIVE PERCENT (BEAKER) (test ptta=325) 25 % MONOCYTES RELATIVE PERCENT (BEAKER) (test fvhx=864) 12 % EOSINOPHILS RELATIVE PERCENT (BEAKER) (test ffjo=241) 1 % BASOPHILS RELATIVE PERCENT (BEAKER) (test izso=286) 1 % NEUTROPHILS ABSOLUTE COUNT (BEAKER) (test lggb=831) 5.11 K/ L 1.80-8.00 LYMPHOCYTES ABSOLUTE COUNT (BEAKER) (test lesp=179) 2.03 K/ L 1.48-4.50 MONOCYTES ABSOLUTE COUNT (BEAKER) (test xawy=364) 0.97 K/ L 0.00-1.30 EOSINOPHILS ABSOLUTE COUNT (BEAKER) (test loer=483) 0.06 K/ L 0.00-0.50 BASOPHILS ABSOLUTE COUNT (BEAKER) (test ixaj=246) 0.06 K/ L 0.00-0.20 0.00PREGNANCY SCREEN, [id number] 18:55:00* Test Item Value Reference Range Comments TEST URINE (BEAKER) (test ekfa=558) Negative [id number] 17:12:00* Test Item Value Reference Range Comments PHOSPHORUS (BEAKER) (test ovfk=331) 2.9 mg/dL 2.3-4.7 [id number] 17:12:00* Test Item Value Reference Range Comments MAGNESIUM (BEAKER) (test pmpk=935) 1.4 mg/dL 1.6-2.6 BASIC METABOLIC [id number] 17:12:00* Test Item Value Reference Range Comments SODIUM (BEAKER) (test jbqg=679) 133 meq/L 136-145 POTASSIUM (BEAKER) (test vgkt=197) 3.8 meq/L 3.5-5.1 CHLORIDE (BEAKER) (test fsug=815) 106 meq/L 98-107 CO2 (BEAKER) (test wvgv=974) 18 meq/L 22-29 BLOOD UREA NITROGEN (BEAKER) (test fqkm=611) 16 mg/dL 7-21 CREATININE (BEAKER) (test leyy=549) 1.74 mg/dL 0.57-1.25 GLUCOSE RANDOM (BEAKER) (test jski=851) 82 mg/dL 70-105 CALCIUM (BEAKER) (test ingk=349) 8.5 mg/dL 8.4-10.2 EGFR (BEAKER) (test zqut=4219) 35 mL/min/1.73 sq m ESTIMATED GFR IS NOT ACCURATE CREATININE CLEARANCE IN PREDICTING GLOMERULAR FILTRATION RATE. ESTIMATED GFR IS NOT APPLICABLE FOR DIALYSIS PATIENTS. HEPATIC FUNCTION [id number] 17:12:00* Test Item Value Reference Range Comments TOTAL PROTEIN (BEAKER) (test kijf=614) 6.0 gm/dL 6.0-8.3 ALBUMIN (BEAKER) (test qwlf=1783) 3.1 g/dL 3.5-5.0 BILIRUBIN TOTAL (BEAKER) (test oiba=784) 0.6 mg/dL 0.2-1.2 BILIRUBIN DIRECT (BEAKER) (test ztzp=099) 0.2 mg/dL 0.1-0.5 ALKALINE PHOSPHATASE (BEAKER) (test ptbd=210) 85 U/L 40-150 AST (SGOT) (BEAKER) (test inna=521) 20 U/L 5-34 ALT (SGPT) (BEAKER) (test wdtn=129) 13 U/L 6-55 [id number] 17:12:00* Test Item Value Reference Range Comments LIPASE (BEAKER) (test judt=479) 21 U/L 8-78 URINALYSIS W/ [id number] 16:59:00* Test Item Value Reference Range Comments COLOR (BEAKER) (test lsbl=231) Yellow CLARITY (BEAKER) (test eyat=697) Cloudy SPECIFIC GRAVITY UA (BEAKER) (test gqoo=798) 1.009 1.001-1.035 PH UA (BEAKER) (test ztue=630) 5.5 5.0-8.0 PROTEIN UA (BEAKER) (test ijxx=531) 100 mg/dL Negative GLUCOSE UA (BEAKER) (test zvog=145) Negative Negative KETONES UA (BEAKER) (test tadf=016) Negative Negative BILIRUBIN UA (BEAKER) (test lbna=808) Negative Negative BLOOD UA (BEAKER) (test yaox=280) Moderate Negative NITRITE UA (BEAKER) (test iqcz=915) Negative Negative LEUKOCYTE ESTERASE UA (BEAKER) (test evtb=440) Large Negative UROBILINOGEN UA (BEAKER) (test yzvg=700) 0.2 mg/dL 0.2-1.0 RBC UA (BEAKER) (test ymdf=276) 14 /HPF WBC UA (BEAKER) (test sckb=031) > /HPF BACTERIA (BEAKER) (test xfok=807) Few MUCUS (BEAKER) (test elfr=3817) Rare SOURCE(BEAKER) (test neae=2694) Urine, Clean Catch CBC W/PLT COUNT & AUTO [id number] 16:53:00* Test Item Value Reference Range Comments WHITE BLOOD CELL COUNT (BEAKER) (test zeba=508) 8.7 K/ L 4.0-10.0 RED BLOOD CELL COUNT (BEAKER) (test gngf=230) 3.71 M/ L 4.00-5.00 HEMOGLOBIN (BEAKER) (test jvip=500) 10.9 GM/DL 12.0-15.0 HEMATOCRIT (BEAKER) (test gxdg=821) 31.2 % 36.0-45.0 MEAN CORPUSCULAR VOLUME (BEAKER) (test nood=579) 84.1 fL 82.0-99.0 MEAN CORPUSCULAR HEMOGLOBIN (BEAKER) (test mayp=880) 29.3 pg 27.0-33.0 MEAN CORPUSCULAR HEMOGLOBIN CONC (BEAKER) (test gvqh=135) 34.8 GM/DL 32.0-36.0 RED CELL DISTRIBUTION WIDTH (BEAKER) (test kyts=621) 14.0 % 10.3-14.2 PLATELET COUNT (BEAKER) (test kxse=948) 162 K/CU MM 150-430 MEAN PLATELET VOLUME (BEAKER) (test svhl=042) 8.4 fL 6.5-10.5 NUCLEATED RED BLOOD CELLS (BEAKER) (test kmkz=788) 0 /100 WBC 0-0 NEUTROPHILS RELATIVE PERCENT (BEAKER) (test lhvc=240) 60 % LYMPHOCYTES RELATIVE PERCENT (BEAKER) (test sjdi=090) 26 % MONOCYTES RELATIVE PERCENT (BEAKER) (test mkic=386) 13 % EOSINOPHILS RELATIVE PERCENT (BEAKER) (test mmak=322) 0 % BASOPHILS RELATIVE PERCENT (BEAKER) (test frus=013) 1 % NEUTROPHILS ABSOLUTE COUNT (BEAKER) (test wwsf=433) 5.27 K/ L 1.80-8.00 LYMPHOCYTES ABSOLUTE COUNT (BEAKER) (test kvaj=415) 2.24 K/ L 1.48-4.50 MONOCYTES ABSOLUTE COUNT (BEAKER) (test fvkk=173) 1.13 K/ L 0.00-1.30 EOSINOPHILS ABSOLUTE COUNT (BEAKER) (test cpne=498) 0.03 K/ L 0.00-0.50 BASOPHILS ABSOLUTE COUNT (BEAKER) (test twco=566) 0.05 K/ L 0.00-0.20 0.00POCT-LACTIC ACID, [id number] 16:49:00* Test Item Value Reference Range Comments POC-LACTIC ACID, VENOUS (BEAKER) (test roke=6852) 0.6 mmol/L 0.9-1.[address] [facility] [address] [facility] [address] PT/[id number] 11:25:00* Test Item Value Reference Range Comments PROTIME (BEAKER) (test srsi=873) 13.6 seconds 11.7-14.7 INR (BEAKER) (test ejdk=026) 1.1 <=5.9 PARTIAL THROMBOPLASTIN TIME (BEAKER) (test awmy=828) 32.0 seconds 22.5-36.0 RECOMMENDED COUMADIN/WARFARIN INR THERAPY RANGESSTANDARD DOSE: 2.0 - 3.0 Inclu you: PROPHYLAXIS for venous thrombosis, systemic embolization; TREATMENT for gerber ous thrombosis and/or pulmonary embolus.HIGH RISK: Target INR is 2.5-3.5 for pat ients with mechanical heart valves.PLATELET [id number] 11:21:00* Test Item Value Reference Range Comments PLATELET COUNT (TEJAL) (test zyuj=970) 186 K/CU MM 150-430 US PELVIS COMPLETE NON OB [facility] [address] [address] Patient Name: PEG SEQUEIRA MR #: [id number] : 1985 Age/Sex: 31/F Req #: [id number] Adm Physician: Ordered by: MARIA DOLORES GILBERT MD Report #: [id number] Location: ER Room/Bed: Procedure: [id number] US/US PELVIS COMPLETE NON OB Exa m Date: 06/18/17 Exam Time: 0959 REPORT STATUS: Signed EXAM: Transabdominal Pelvic Ultrasound INDICATION: COMPARISON: None available. TECHNIQUE: Grayscale transverse and sagittal t ransabdominal images were obtained of the pelvis. CLINICAL HISTORY: 31 year old G0; last menstrual period: 05/07/2017. FINDINGS: Uterus Orientation: Normal Size: 6.9 x 2.8 x 3.5 cm, Normal Mass: None Cervix: Normal Endometrium: Thickness: 0.6 cm, Normal. Appearance: Homogeneous echotexture without focal thickening. Rig ht ovary: Surgically absent. Left ovary: Size: 9.4 x 4.1 x 5.1 cm Mass/Cyst: 2 complex cysts versus a single cyst with septation measuring 9.9 cm (4.4 x 2.7 cm and 5.5 x 4 cm. Peripheral arterial and venous flow de tected in left ovary. Adnexa: Transplanted kidney in the left pelvic region . There is a 2.7 x 2.5 x 3 cm midpole renal cyst. Complex cystic structure i n the right adnexa measuring 2.4 x 3.4 x 2.9 cm, demonstrating peripheral vasc ularity. Cul-de-sac: No free fluid IMPRESSION: 1. Enlarged left ovary, containing complex cysts, demonstrating peripheral vascular flow, low likelihood of left ovarian torsion. 2. Transplanted left pelvic kidney contai phil a simple cyst. 3. Complex cystic structure in the right adnexa with jey pheral vascularity. This could represent markedly hydronephrotic right pelvic transplanted kidney, considering history of bilateral renal transplant. Recomm end CT abdomen/pelvis with contrast for further evaluation. Sign ed by: Dr. Fan Gunn MD on 06/18/2017 11:21 AM Dictated By: FAN SCHNEIDER MD 1121 Transcribe d By: KIRSTIN on 06/18/17 1121 COPY TO: MARIA DOLORES GILBERT MD
[2018-08-08] MEDS ORDERED: DEXAMETHASONE SOD PHOS 10 MG/1 ML VIAL IM ONE (23:15)
[2018-08-08] MEDS ORDERED: LORAZEPAM 1 MG TAB PO ONE (23:15)
[2018-08-09 00:44] VITALS: BP 154/79
== END 2018-08-09 | disposition home or self-care (01) ==
LOC: FSED 22:48
DX: R21 Rash and other nonspecific skin eruption (principal); F41.1 Generalized anxiety disorder; F17.210 Nicotine dependence, cigarettes, uncomplicated
CPT/HCPCS: 99282

== ENCOUNTER → 2020-06-23 | Outpatient (CLI) | payer MEDICARE ==
[~2020-06-23] MED LIST changes: +LORAZEPAM INJ 2 MG/ML VIAL ONE
[2020-06-23 11:49] LABS: CREATININE, SERUM 1.66 mg/dL (0.57-1.11)
== END ==
LOC: MRI 10:47
PROVIDERS: ATTEND Obstetrics & Gynecology Gynecologic Oncology
DX: N87.1 Moderate cervical dysplasia (principal); N83.209 Unspecified ovarian cyst, unspecified side; N94.89 Other specified conditions associated with female genital organs and menstrual cycle; Z94.0 Kidney transplant status
CPT/HCPCS: 36415; 72195; 81025; 82565; 84520; J2060